=== PATIENT | female | born 1945 | race Caucasian/White ===

== ENCOUNTER 2023-09-22 02:19 | Inpatient (IN) | payer OTHER, SELFPAY ==
[2023-09-21 23:05] VITALS: BMI 33.3
[2023-09-21 23:17] VITALS: BP 180/97
[2023-09-21 23:19] VITALS: BP 180/97
[2023-09-21 23:35] LABS: % Basophils 0.3 % (0-2); % Eosinophils 0.1 % (0-6); % Immature Granulocytes 0.4 % (0-0.5); % Lymphocytes 5.4 % (20.5-51.1); % Monocytes 7.8 % (1.7-9.3); Absolute Immature Granulocytes 0.1 10^3/uL (0-0.05); Absolute Lymphocytes 0.8 10^3/uL (1.2-3.4); Absolute Monocytes 1.1 10^3/uL (0.1-0.6); Absolute Neutrophils 12.4 10^3/uL (1.4-6.5); Hematocrit 42.7 % (37.0-47.0); Hemoglobin 14.4 g/dL (12.0-16.0); Mean Corp Hgb Conc. 33.7 g/dL (33.0-37.0); Mean Corpuscular Hgb 31.2 pg (27.0-31.0); Mean Corpuscular Volume 92.6 fL (81.0-99.0); Mean Platelet Volume 10.5 fL (7.4-10.4); Nucleated Red Blood Cells % 0 %; Platelet Count 173 10^3/uL (130-400); Red Blood Cell Count 4.61 10^6/uL (4.20-5.40); Red Cell Dist. Width 12.9 % (11.5-14.5); White Blood Cell Count 14.4 10^3/uL (4.8-10.8)
[2023-09-21] MEDS: NSS 1000 IV (23:37)
--- NOTE | 2023-09-21 23:42 | ED.GENMED ---
History of Present Illness
General
Chief Complaint: Change in Mental Status
Source: patient
Exam Limitations: clinical condition
Time Seen by Provider: 09/21/23 23:25
Nursing documentation reviewed up to this point in time: agreed with
Travel History
Have you had any contact with someone who has COVID-19?: No
Do you have any symptoms of coronavirus? Fever > 100 degrees, chills, cough, shortness of breath, sore throat, loss of taste or smell, muscle aches, or headache?: No
History of Present Illness
History of Present Illness:
The patient is a 78-year-old female found down by police in her home after a well check was called. The patient is a poor historian. She does not remember how she ended up on the ground. She complains of nausea and back pain. She denies chest
pain or shortness of breath.
Past History
Past History
ED Past Medical History: Cancer, CVA, HTN, Hypercholesterolemia and Psychiatric
ED Past Surgical History: Other (Mastectomy)
PSI?: No
Social History
Tobacco: Non-smoker
Alcohol: None
Drug: None
Personal: Single
Living: alone
Employment: Retired
Family History
Family History: Unable to obtain
Review of Systems
Review of Systems
Allergies reviewed?: Yes
All Other Systems: ROS reviewed and negative except as documented in HPI and ROS
Constitutional: Reports fatigue
EENT: Reports no symptoms
Respiratory: Reports no symptoms
Cardiac: Reports no symptoms
ABD/GI: Reports nausea
: Reports no symptoms
Musculoskeletal: Reports back pain
Skin: Reports no symptoms
Neurological: Reports no symptoms
Endocrine: Reports no symptoms
Hematologic/Lymphatic: Reports no symptoms
Psychiatric: Reports no symptoms
Phy Exam
Physical Exam
Physical Exam:
Physical Exam
General: Patient appears lethargic.
Neck: supple. no meningeal signs. Dry mucous membrane
Heart: s1/s2 regular rate and rhythm, no murmur. equal radial pulses.
Lungs: no acute respiratory distress. clear bilaterally
Abdomen: normal bowel sounds. not tender. no CVAT
Neuro: alert and orientedx3. no focal neurological deficits
Skin: no rash
Psychiatric: well kept. interactive and cooperative
Extremities: no edema. no calf tenderness. negative homans. good distal pulses
Course
Orders/Labs/Results
Orders:
Orders
09/21/23 23:14
CT Head W/o Iv Contrast Urgent
Comment:
Reason For Exam: fall
Cervical Spine wo Contrast CT [CT Cervical Spine W/o Iv Contr] Urgent
Comment:
Reason For Exam: fall
09/21/23 23:24
Complete Blood Count/With Diff Urgent
09/21/23 23:25
0.9% Sodium Chloride 1000 ml [Nss] 1,000 ml IV BOLUS
09/21/23 23:27
CT Abd/pel Without Iv Or Oral Urgent
Comment:
Reason For Exam: abdominal pain, fall
Urinalysis Reflex To Culture Urgent
Date Specimen was Collected: 09/22/23
Time Specimen was Collected: 01:32
09/21/23 23:36
Keppra (Levetiracetam) [S] Urgent
Lactic Acid Urgent
09/22/23 00:34
Alcohol Urgent
Comprehensive Metabolic Panel Urgent
Creatine Phosphokinase Urgent
09/22/23 00:51
Levetiracetam Injectable [Keppra] 2,000 mg IV NOW STA
Lorazepam [Ativan] 2 mg .ROUTE .STK-MED ONE
Abnormal Lab Results
09/21/23 09/22/23 09/22/23
23:24 00:34 01:34
WBC 14.4 H 10^3/uL
(4.8-10.8)
MCH 31.2 H pg
(27.0-31.0)
MPV 10.5 H fL
(7.4-10.4)
Abs Immat Gran (auto) 0.1 H 10^3/uL
(0-0.05)
Absolute Neuts (auto) 12.4 H 10^3/uL
(1.4-6.5)
Absolute Lymphs (auto) 0.8 L 10^3/uL
(1.2-3.4)
Absolute Monos (auto) 1.1 H 10^3/uL
(0.1-0.6)
Neutrophils % 86.0 H %
(42.2-75.2)
Lymphocytes % 5.4 L %
(20.5-51.1)
BUN 23 H mg/dl
(7-17)
Glucose 128 H mg/dl
(70-99)
Alkaline Phosphatase 129 H U/L
(38-126)
Creatine Kinase 400 H U/L
(30-135)
Urine Ketones 2+ A
(Negative)
Ur Occult Blood Reflex 1+ A
(Negative)
Urine Bilirubin 1+ A
(Negative)
Leukocyte Esterase Rfl 2+ A
(Negative)
Urine Albumin (Reflex) 2+ A
(Neg - Trace)
09/21/23 23:24
09/22/23 00:34
Vital Signs
Initial and Last Documented VS:
Initial Vital Signs
BP
180/97
09/21/23 23:17
Last Documented Vital Signs
Pulse Resp BP Pulse Ox
74 19 169/78 98
09/22/23 01:30 09/22/23 01:30 09/22/23 01:05 09/22/23 01:39
MDM/Problems Addressed
Differential Diagnosis Includes:
Dehydration, rhabdo, UTI, acute alcohol intoxication, intracranial bleed
MDM/Problems Addressed:
Patient presents after being found down
Chronic conditions affecting care: HTN
Acute Exacerbation and/or Progression of Chronic Illness:
Patient is acutely hypertensive, which may be contributing to an altered mental status
Acute Exacerbation and/or Progression of Chronic Illness: HTN
*Radiology
Radiology exam reviewed: preliminary read by ED provider
*Pulse Oximetry
Patient hypoxic: no
*EKG
Interpreted by ED Provider?: Yes
Interpretation: abnormal
Comparison EKG: no changes
Rate: tachycardiac
Rhythm: sinus
[place]: normal axis
Interval: normal interval
QRS Pattern: normal QRS
Ischemia: non-specific ST changes
*Real Estate [employer] Interpretation
Rate: normal
Interpretation: normal
Rhythm: sinus
*Critical Care Note
Total Time (30-74mins, 75-104mins- exclusive of procedures): 40 min
comment:
40 minutes of critical care given to the patient including frequent reassessments of her mental status, treating her during her seizure, reviewing prior medical records, reviewing her lab work and CAT scan report
Data Reviewed
Review of Other/Old Records Reveals: Discharge Summary (Discharge summary reviewed from 05/2022 when patient was admitted for rhabdomyolysis and found to have pulmonary hypertension)
Source: patient and ambulance crew
ED Attending Note
-
Portions of this chart may have been created with voice recognition software.� Occasional wrong word or��sound alike� substitutions may have occurred due to the inherent limitations of voice recognition software.
Discharge Plan
Departure
Patient Disposition: Admit
Date of Disposition: 09/22/23
Time of Disposition: 01:08
Admit to: Telemetry
Presentation/result/management discussed w/ accepting MD/DO: Hospitalist
Patient with high blood pressure during this ER visit?: Yes
Discharge Problem:
Rhabdomyolysis, Breakthrough seizure
Prescriptions:
No Action
levetiracetam 500 MG tablet
500 mg PO DAILY
Patient Comments:
09/21/2023: Pt doesn't always take BID, but mostly takes in the am
aspirin 81 mg Tablet,Delayed Release (Dr/Ec)
81 mg PO DAILY
Patient Comments:
per pt 'not for a few days'
nifedipine 30 mg Tablet Extended Release
30 mg PO DAILY 30 Days Qty: 30 0RF
Patient Comments:
09/21/2023: Pt unsure of name says its a 'really long name' medications on both Dr First and [facility]
Referrals:
UNKNOWN - PT DOES,NOT KNOW [Family Provider] -
Interventions
Interventions:
*Risk Screen - Suicide Last Done: 09/21/23 23:19
*General Assessment Last Done: 09/21/23 23:19
*Neglect/Abuse Screening Last Done: 09/21/23 23:19
ED- Fall Risk Assessment Last Done: 09/22/23 00:23
*ED COVID-19 Vaccine History Last Done: 09/21/23 23:19
ED- Neurological Assessment Last Done: 09/22/23 00:20
ED Swallowing Screen Last Done: 09/22/23 01:01
[2023-09-22] VITALS (14 sets, daily range): BP systolic 116–179; BP diastolic 64–93; PULSE 72–124; O2SAT 96; BMI 32.3; BMI 32.2
[2023-09-22 00:11] LABS: Lactic Acid 1.5 mmol/L (0.7-2.0)
[2023-09-22] MEDS: KEPPRA 2000 MG IV (00:57)
[2023-09-22 01:02] LABS: ALT (SGPT) 20 U/L (0-35); AST (SGOT) 31 U/L (14-36); Albumin 4.4 g/dl (3.5-5.0); Alkaline Phosphatase 129 U/L (38-126); Blood Urea Nitrogen 23 mg/dl (7-17); Calcium 9.4 mg/dl (8.4-10.2); Carbon Dioxide 24 mmol/L (22-30); Chloride 103 mmol/L (98-107); Creatine Phosphokinase 400 U/L (30-135); Estimated Creatinine Clearance 75 ml/min; Glucose 128 mg/dl (70-99); Potassium 3.9 mmol/L (3.5-5.1); Sodium 135 mmol/L (135-145); Total Bilirubin 1.1 mg/dl (0.2-1.3); Total Protein 7.6 g/dl (6.3-8.2); eGFR > 60.00
[2023-09-22 01:05] LABS: Alcohol None Detected
[2023-09-22 01:40] LABS: Urine Albumin 2+ (Neg - Trace); Urine Bilirubin 1+ (Negative); Urine Character Slightly Cloudy (Clear); Urine Color Amber; Urine Glucose Negative (Negative); Urine Ketone 2+ (Negative); Urine Leukocyte 2+ (Negative); Urine Nitrite Negative (Negative); Urine Occult Blood 1+ (Negative); Urine Specific Gravity 1.025 (<1.030); Urine Urobilinogen Negative (Neg - 1+)
[2023-09-22 02:08] LABS: Urine Amorphous Seen; Urine Squamous Cell >30 /LPF (Few); Urine Urothelial Cell >30 /LPF (FEW)
--- NOTE | 2023-09-22 02:13 | HPS.HSE ---
Family Physician
-
Family Physician: NOT KNOW UNKNOWN - PT DOES
Chief Complaint
-
Found Down
History of Present Illness
Patient is a 78y F with PMH significant for seizure disorder, hypertension and mood disorder who presents to ED after being 'found down' at home by emergency services during a well check. Patient was brought to the ED for evaluation. Here she
complained of low back discomfort; though, she cannot say whether or not she fell or injured herself in any way. Patient had witnessed seizure activity here in the ED. She was treated with IV Ativan and then loaded with IV Keppra.
At the time of my examination, patient is awake and alert. She moves all extremities and answers questions - though she cannot recall how she ended up on the floor at home, how long she was there, etc.
She states that she had only one seizure previously and it was 'ages ago'.
Medical History
Past Medical History
Past Medical History: Reports Other
Additional Past Medical History:
Seizure Disorder
Mood Disorder +/- Psychosis
Hypertension
Breast Cancer
ASCVD / CVA
Past Surgical History: Reports Other
Additional Past Surgical History:
Lumpectomy x 3
D&C
Social History
Tobacco: Former Smoker
Alcohol: Occasional
Drug: None
Living: Alone
Family History
Family History: Not pertinent
Allergies / Home Medications
Allergies reflects when Allergies were last updated in [facility].
Home Medications with original date entered in [facility]
Allergy/Medication List:
Allergies
Allergy/AdvReac Type Severity Reaction Status Date / Time
lactose Allergy Unknown Unknown Verified 09/21/23 23:19
Home Medications
levetiracetam 500 mg tablet 500 mg PO DAILY Neurological Condition 05/13/21
aspirin 81 mg tablet,delayed release 81 mg PO DAILY Blood clot prevention/tx 05/26/22
nifedipine 30 mg tablet,extended release 30 mg PO DAILY 30 days #30 tabs 06/02/22
Review of Systems
-
History Source: Patient
A 12 point ROS was completed and negative except as noted: Yes
Constitutional: Denies Fever or Chills
Respiratory: Denies Cough or Trouble Breathing
Cardiac: Denies Chest Pain or Palpitations
Abdomen/GI: Denies Abdominal Pain, Nausea, Vomiting, Diarrhea or Anorexia
: Denies Dysuria or Frequency
Musculoskeletal: Reports Other (Back pain); Denies Edema
Neurological: Denies Dizzy, Headache, Weakness or Numbness
Psych: Denies Anxiety or Suicidal
Physical Exam
Vital Signs
Vital Signs
Pulse Resp BP Pulse Ox
74 19 169/78 98
09/22/23 01:30 09/22/23 01:30 09/22/23 01:05 09/22/23 01:39
Physical Exam
General: Other (78y F in no acute distress.)
HEENT: Moist mucous membranes and PERRLA
Respiratory: Clear; No Wheezes, Rales or Rhonchi
Cardiac: S1/S2 and Regular Rhythm; No Murmur
GI: Soft, Non Tender, Non Distended and Normal Bowel Sounds
Musculoskeletal: No Clubbing, No Cyanosis and No Edema
Neuro: Awake, Alert and Nonfocal/grossly intact
Laboratory Results
-
09/21/23 23:24
09/22/23 00:34
Laboratory Results
Lactic Acid 1.5 mmol/L (0.7-2.0) 09/21/23 23:36
Total Bilirubin 1.1 mg/dl (0.2-1.3) 09/22/23 00:34
AST 31 U/L (14-36) 09/22/23 00:34
ALT 20 U/L (0-35) 09/22/23 00:34
Alkaline Phosphatase 129 U/L (38-126) H 09/22/23 00:34
Impression/Plan
-
A/P: Patient is a 78y F with PMH significant for seizure disorder and mental health issues who presents to ED for evaluation after being 'found down' during welfare check.
Found Down
Rhabdomyolysis
- Admit for further evaluation and treatment.
- Unclear how patient ended up on the ground and she can provide no details.
- Monitor on telemetry to rule out arrhythmia.
- ? seizure - especially given witnessed seizure in the ED today.
- ? fall / injury / etc.
- CPK mildly elevated at present.
- Renal function normal / at baseline.
- IVFs support.
- PT / OT evaluations.
Seizure Disorder
- Witnessed seizure episode in the ED.
- Not clear if seizure caused her initial collapse, or if today's event is secondary to lack of meds due to prior syncope, fall, etc.
- Keppra load in the ED - continue 1000mg BID for now.
- Level is pending.
- Ativan as needed for breakthrough seizures.
- Neurology evaluation.
Mood Disorder
- History of suspected psychosis, psychiatric hospitalizations, etc.
- Patient denies any suicidal / homicidal ideations at this time.
- No apparent active psychotropic medications.
- Follow for changes in mood. Consider formal Psych evaluation.
Benign Hypertension
- Stable. Continue nifedipine with holding parameters.
- Adjust regimen as needed.
Prior CVA
- Stable. CT scan shows no new findings today. Old area of encephalomalacia.
- Continue daily ASA.
- Follow for any new / focal neurologic complaints.
DVT Prophylaxis: SCDs
Code Status: Full
[2023-09-22 02:15] LABS: Urine Bacteria Many (Negative); Urine Calcium Oxalate Crystals Seen; Urine White Cell >100 /HPF (0-5)
[2023-09-22 02:16] LABS: Urine Mucus Moderate
[2023-09-22] MEDS: LR 1000 IV ×4 (04:45→23:53)
[2023-09-22 05:22] LABS: Hematocrit 39.7 % (37.0-47.0); Hemoglobin 13.3 g/dL (12.0-16.0); Mean Corp Hgb Conc. 33.5 g/dL (33.0-37.0); Mean Corpuscular Hgb 31.4 pg (27.0-31.0); Mean Corpuscular Volume 93.6 fL (81.0-99.0); Mean Platelet Volume 11.2 fL (7.4-10.4); Platelet Count 151 10^3/uL (130-400); Red Blood Cell Count 4.24 10^6/uL (4.20-5.40); Red Cell Dist. Width 12.9 % (11.5-14.5); White Blood Cell Count 12.5 10^3/uL (4.8-10.8)
[2023-09-22 05:57] LABS: ALT (SGPT) 18 U/L (0-35); AST (SGOT) 27 U/L (14-36); Albumin 3.7 g/dl (3.5-5.0); Alkaline Phosphatase 108 U/L (38-126); Blood Urea Nitrogen 24 mg/dl (7-17); Calcium 9.2 mg/dl (8.4-10.2); Carbon Dioxide 23 mmol/L (22-30); Chloride 103 mmol/L (98-107); Direct Bilirubin 0.5 mg/dl (0.0-0.4); Estimated Creatinine Clearance 76 ml/min; Glucose 112 mg/dl (70-99); Phosphorus 3.5 mg/dl (2.5-4.5); Potassium 3.7 mmol/L (3.5-5.1); Sodium 138 mmol/L (135-145); Total Protein 6.4 g/dl (6.3-8.2); eGFR > 60.00
[2023-09-22 06:06] LABS: Creatine Phosphokinase 424 U/L (30-135)
[2023-09-22 06:18] LABS: TSH Reflex To Free T4 1.26 uIU/ml (0.47-4.68)
[2023-09-22] MEDS: KEPPRA 1000 MG IV ×2 (08:41→20:08)
[2023-09-22] MEDS: ASPIR LOW (ENTERIC COATED) 81 MG PO (08:41)
[2023-09-22] MEDS: PROCARDIA XL (EXTENDED RELEASE) 30 MG PO (08:41)
--- NOTE | 2023-09-22 08:48 | PTCARENOTE ---
pt able to take morning meds whole with water. pt very poor historian and states 'it has been a long while' since her last seizure. per security shift supervisor report this pt had a seizure down in the ED prior to acute care floor admission. pt answers
assessment questions properly. pt states no sob but has some back pain and 'midsection' pain with ambulation. seizure pads are intact in the bed, purewick is in place and pt is receiving LR at 150ml/hr.
--- NOTE | 2023-09-22 09:13 | CON.NEURO4 ---
Addendum entered and electronically signed by Rehan Lunsford MD 09/22/23 16:27:
Studies reviewed.
I have personally examined the patient. I reviewed and agree with the [facility]'s Note.
My addenda:
Awake, alert, interactive. No acute distress.
Speech intact.
Follows 2-step requests w/o difficulty. No tremor.
Extra-ocular movements grossly intact.
Facial movements full and symmetric. Hearing intact to normal conversational volume.
Normal UE movements bilaterally.
Neck: full ROM.
Chest: no dyspnea
Heart: no JVD
Ext: (-) Clubbing, (-) Cyanosis, (-) Edema
IMPRESSIONS/RECOMMENDATIONS:
Abrupt onset of change in mental status
Most likely due to recurrent seizure
continue Levetiracetam 1000 mg Q12
continue ASA
Will continue to follow as needed.
Original Note:
Documented by User: Jelena Bingham NP 09/22/23 11:34
Consultation - Neurology 4
-
CONSULTING PHYSICIAN: Rehan Lunsford MD
REFERRING PHYSICIAN: Hospitalists/Dr. Barakat
DICTATED BY: MARCI Correa
DATE/TIME OF REQUEST: 09/22/23
DATE/TIME OF CONSULTATION: 09/22/23
Reason for Consultation: Concern for seizure
History of Present Illness:
This is a 78-year-old female who has presented to the hospital with report of being found on the ground in her apartment by EMS during a wellness check. Patient cannot recall how she fell or how long she was on the ground. She reports that when she
woke up, she was wedged between furniture and that is what prevented her from getting up off of the ground. Her biggest complaint is lower back discomfort. CT Head and cervical spine were obtained and are negative for any acute abnormalities. She
had a witnessed seizure in the ER, and received 2mg lorazepam and 2000mg levetiracetam. It is unclear if there was any incontinence with this event, she denies any tongue discomfort. She was followed by Neurology Dr. Jennings in the past but she has not
seen him in years. She has been on levetiracetam 500mg daily for years, and many medical record notes report that she stops taking it at times due to thinking it will kill her. Currently, patient denies any headache, dizziness, speech/swallow
difficulty, nausea, numbness, chest pain, palpitations, and shortness of breath.
Past Medical History: Left temporal/occipital ischemic stroke 06/2013, seizure disorder, HTN, HLD, breast cancer, paranoid/delusional psych disorder
Surgical History: Mastectomy, D&C
Family History: Reviewed and noncontributory.
Social History: Former smoker. Denies alcohol, and illicit drug use. Does not drive due to left homonymous hemianopia. 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
Allergies: Lactose.
Home Medications: See below.
Review of Symptoms:
Patient denies any fever, headache, chest pain, shortness of breath, GI or symptoms.
�Per the HPI.�All systems are reviewed negative except above.
Physical Exam:
The patient is afebrile, abdomen is nondistended, breathing is unlabored on oxygen via nasal cannula, skin is warm and dry, no edema.
Neurologic Examination:
The patient is awake, alert and oriented x 3, poor historian. Next holiday- , most recent holiday- . She is able to follow commands and answer questions appropriately. There is no aphasia or dysarthria. On cranial nerve
assessment, pupils are 3 mm bilateral, round and reactive to light and accommodation. There is a right homonymous hemianopia. Extraocular movements are intact. Facial sensations are intact and bilaterally symmetrical, there is no facial asymmetry.
Hearing is intact bilaterally to normal conversation volume. Tongue palate and uvula are midline. No tongue laceration. Sternocleidomastoid strengths are full bilaterally. Motor strengths are 5/5 bilateral upper and lower extremities on medical
research Sawyer scale. There is no drift or involuntary movement noted. Deep tendon reflexes are 2+ bilateral upper and lower extremities and Babinski is absent bilaterally. Coordination is intact by finger to nose bilaterally.
Lab Results: See below.
Neuro Imaging:
1. CT Head 09/21/23: No acute intracranial abnormalities. Old left occipital lobe infarct. Findings again seen compatible with diffuse cortical atrophy with nonspecific white matter changes as described above.
2. CT Cervical Spine 09/21/23: Straightening of the normal cervical lordotic curvature. Degenerative changes. No findings to suggest recent fracture.
Differentials for the patient's presentation include:
1. Seizure disorder with breakthrough generalized seizure, well-controlled, without status epilepticus.
2. History of medication noncompliance
3. Rhabdomyolysis
4. Old left temporal/occipital ischemic stroke with chronic right homonymous hemianopia
Patient has the following risk factors for their symptoms: Old stroke, seizure disorder medication noncompliance
Recommendations:
-Routine EEG ordered/pending
-Check orthostatic vital signs
-Continue increased dose of levetiracetam 1000mg BID
-Seizure precautions
-DVT prophylaxis
-Will follow pending EEG results. Patient should follow-up with Neurology Dr. Jennings as an outpatient.
Discussed patient care with: Dr. Lunsford, the patient
Vital Signs and Labs
-
Vital Signs and Labs:
Vital Signs
Temp Pulse Resp BP Pulse Ox
97.7 F 81 16 144/79 95
09/22/23 11:09 09/22/23 11:09 09/22/23 11:09 09/22/23 11:09 09/22/23 11:09
Lab Results
09/22/23 04:40
09/22/23 04:40
Sodium 138 mmol/L (135-145) 09/22/23 04:40
Potassium 3.7 mmol/L (3.5-5.1) 09/22/23 04:40
BUN 24 mg/dl (7-17) H 09/22/23 04:40
Glucose 112 mg/dl (70-99) H 09/22/23 04:40
Calcium 9.2 mg/dl (8.4-10.2) 09/22/23 04:40
Phosphorus 3.5 mg/dl (2.5-4.5) 09/22/23 04:40
Medications
-
Active Medications
Generic Name Dose Route Start Last Admin
Trade Name Freq PRN Reason Stop Dose Admin
Acetaminophen 650 mg 09/22/23 04:11
Acetaminophen 325 Mg Tablet PO 10/20/23 04:10
Q4HPRN PRN
Mild Pain / Temp > 101
Aspirin 81 mg 09/22/23 08:00 09/22/23 08:41
Aspirin 81 Mg (Enteric Coated) Tablet PO 10/20/23 07:59 81 mg
DAILY NIKA Administration
Enoxaparin Sodium 40 mg 09/22/23 18:00
Enoxaparin Sodium 40 Mg/0.4 Ml Syringe SC 10/20/23 17:59
QPM NIKA
Lactated Ringer's 1,000 mls @ 150 mls/hr 09/22/23 04:11 09/22/23 11:06
Lr IV 1,000 mls
.Q6H40M NIKA Administration
Levetiracetam 1,000 mg 09/22/23 08:00 09/22/23 08:41
Levetiracetam (100 Mg/Ml) 500 Mg/5 Ml Vial IV 10/20/23 07:59 1,000 mg
Q12 NIKA Administration
Lorazepam 2 mg 09/22/23 04:11
Lorazepam 2 Mg/Ml Vial IV 10/20/23 04:10
Q4HPRN PRN
Seizure activity
Nifedipine 30 mg 09/22/23 08:00 09/22/23 08:41
Nifedipine 30 Mg Extended Release Tablet PO 10/20/23 07:59 30 mg
DAILY NIKA Administration
Ondansetron HCl 4 mg 09/22/23 04:11
Ondansetron 4 Mg/2 Ml Vial IV 10/20/23 04:10
Q6HPRN PRN
nausea and vomiting
Sodium Chloride 0 flush 09/22/23 05:00
Sodium Chloride 0.9% (Flush) Syringe IV 10/20/23 04:59
PER PROTOCOL NIKA
Sodium Chloride 1 ml 09/22/23 04:31
Nss (Pf) 10 Ml Vial For Ativan 2 Mg Dose IV 10/20/23 04:30
Q4HPRN PRN
IV LORAZEPAM DILUTION
Home Medications
Medication Instructions Recorded
levetiracetam 500 mg tablet 500 mg PO DAILY Neurological 05/13/21
Condition
aspirin 81 mg tablet,delayed 81 mg PO DAILY Blood clot 05/26/22
release prevention/tx
nifedipine 30 mg tablet,extended 30 mg PO DAILY 30 days #30 tabs 06/02/22
release

Documented by User: Rehan Lunsford MD 09/22/23 16:18
Consultation - Neurology 4
-
CONSULTING PHYSICIAN: Rehan Lunsford MD
REFERRING PHYSICIAN: Hospitalists/Dr. Barakat
DICTATED BY: MARCI Correa
DATE/TIME OF REQUEST: 09/22/23
DATE/TIME OF CONSULTATION: 09/22/23
Reason for Consultation: Concern for seizure
History of Present Illness:
This is a 78-year-old female who has presented to the hospital with report of being found on the ground in her apartment by EMS during a wellness check. Patient cannot recall how she fell or how long she was on the ground. She reports that when she
woke up, she was wedged between furniture and that is what prevented her from getting up off of the ground. Her biggest complaint is lower back discomfort. CT Head and cervical spine were obtained and are negative for any acute abnormalities. She
had a witnessed seizure in the ER, and received 2mg lorazepam and 2000mg levetiracetam. It is unclear if there was any incontinence with this event, she denies any tongue discomfort. She was followed by Neurology Dr. Jennings in the past but she has not
seen him in years. She has been on levetiracetam 500mg daily for years, and many medical record notes report that she stops taking it at times due to thinking it will kill her. Currently, patient denies any headache, dizziness, speech/swallow
difficulty, nausea, numbness, chest pain, palpitations, and shortness of breath.
Past Medical History: Left temporal/occipital ischemic stroke 06/2013, seizure disorder, HTN, HLD, breast cancer, paranoid/delusional psych disorder
Surgical History: Mastectomy, D&C
Family History: Reviewed and noncontributory.
Social History: Former smoker. Denies alcohol, and illicit drug use. Does not drive due to left homonymous hemianopia. 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
Allergies: Lactose.
Home Medications: See below.
Review of Symptoms:
Patient denies any fever, headache, chest pain, shortness of breath, GI or symptoms.
�Per the HPI.�All systems are reviewed negative except above.
Physical Exam:
The patient is afebrile, abdomen is nondistended, breathing is unlabored on oxygen via nasal cannula, skin is warm and dry, no edema.
Neurologic Examination:
The patient is awake, alert and oriented x 3, poor historian. Next holiday- , most recent holiday- . She is able to follow commands and answer questions appropriately. There is no aphasia or dysarthria. On cranial nerve
assessment, pupils are 3 mm bilateral, round and reactive to light and accommodation. There is a right homonymous hemianopia. Extraocular movements are intact. Facial sensations are intact and bilaterally symmetrical, there is no facial asymmetry.
Hearing is intact bilaterally to normal conversation volume. Tongue palate and uvula are midline. No tongue laceration. Sternocleidomastoid strengths are full bilaterally. Motor strengths are 5/5 bilateral upper and lower extremities on medical
research Sawyer scale. There is no drift or involuntary movement noted. Deep tendon reflexes are 2+ bilateral upper and lower extremities and Babinski is absent bilaterally. Coordination is intact by finger to nose bilaterally.
Lab Results: See below.
Neuro Imaging:
1. CT Head 09/21/23: No acute intracranial abnormalities. Old left occipital lobe infarct. Findings again seen compatible with diffuse cortical atrophy with nonspecific white matter changes as described above.
2. CT Cervical Spine 09/21/23: Straightening of the normal cervical lordotic curvature. Degenerative changes. No findings to suggest recent fracture.
Differentials for the patient's presentation include:
1. Seizure disorder with breakthrough generalized seizure, well-controlled, without status epilepticus.
2. History of medication noncompliance
3. Rhabdomyolysis
4. Old left temporal/occipital ischemic stroke with chronic right homonymous hemianopia
Patient has the following risk factors for their symptoms: Old stroke, seizure disorder medication noncompliance
Recommendations:
-Routine EEG ordered/pending
-Check orthostatic vital signs
-Continue increased dose of levetiracetam 1000mg BID
-Seizure precautions
-DVT prophylaxis
-Will follow pending EEG results. Patient should follow-up with Neurology Dr. Jennings as an outpatient.
Discussed patient care with: Dr. Lunsford, the patient
--- NOTE | 2023-09-22 11:06 | W.PN.HOSP.TC ---
Today's Communication/Plan
-
see A/P
Assessment / Plan
Assessment / Plan
78y F with PMH significant for seizure disorder, hypertension and mood disorder who presented to ED after being 'found down' at home by emergency services during a well check.�Patient was brought to the ED for evaluation.�
Here she complained of low back discomfort; though, she cannot say whether or not she fell or injured herself in any way.�Patient had witnessed seizure activity in the ED.� She was treated with IV Ativan and then loaded with IV Keppra.
At the time of admission, patient was awake and alert.� She moves all extremities and answers questions - though she cannot recall how she ended up on the floor at home, how long she was there, etc.
She states that she had only one seizure previously and it was 'ages ago'.
A/P:
# Found Down
# Non-traumatic Rhabdomyolysis
# neck pain and lower back pain with ambulation
Unclear how patient ended up on the ground and she could not provide details.
Telemetry so far without arrhythmia.
? seizure - especially given witnessed seizure in the ED
? fall / injury / etc.
CT head unrevealing, CT neck without fracture, CT AP without gross acute posttraumatic abnormality throughout the abdomen and pelvis.
CPK mildly elevated, continue to monitor. Cont IVFs support. Renal function normal / at baseline.
PT / OT evaluations.
# Seizure Disorder
Witnessed seizure episode in the ED.
Not clear if seizure caused her initial collapse, or if event was secondary to lack of meds due to prior syncope, fall, etc.
Keppra load in the ED - continue 1000mg BID for now.
Keppra Level is pending.
Ativan as needed for breakthrough seizures.
Neurology evaluation.
# Mild leucocytosis likely reactive
Cont to monitor
# Mood Disorder
# History of suspected psychosis, psychiatric hospitalizations, etc.
Patient denies any suicidal / homicidal ideations at this time.
No apparent active psychotropic medications.
Follow for changes in mood.� Consider formal Psych evaluation.
Poor insight
# Benign Hypertension�- Stable.�
Continue nifedipine with holding parameters.
Adjust regimen as needed.
# Prior CVA - Stable.�
CT scan shows no new findings.� Old area of encephalomalacia.
Continue daily ASA.
Follow for any new / focal neurologic complaints.
DVT Prophylaxis:�Lovenox SQ
Code Status:� Full
DW RN
DW brother at bedside
Anticipated Discharge: 24 - 48 hours
Subjective/Interval History
-
Date of Service: September 22, 2023
Objective Data
-
Labs:
Laboratory Results
09/21/23 09/22/23 09/22/23
23:24 00:06 00:34
WBC 14.4 H
Hgb 14.4
Hct 42.7
Plt Count 173
Sodium Cancelled Cancelled 135
Potassium Cancelled Cancelled 3.9
Chloride Cancelled Cancelled 103
Carbon Dioxide Cancelled Cancelled 24
BUN Cancelled Cancelled 23 H
Creatinine Cancelled Cancelled 0.7
Glucose Cancelled Cancelled 128 H
Calcium Cancelled Cancelled 9.4
Total Bilirubin Cancelled Cancelled 1.1
AST Cancelled Cancelled 31
ALT Cancelled Cancelled 20
Alkaline Phosphatase Cancelled Cancelled 129 H
09/22/23
04:40
WBC 12.5 H
Hgb 13.3
Hct 39.7
Plt Count 151
Sodium 138
Potassium 3.7
Chloride 103
Carbon Dioxide 23
BUN 24 H
Creatinine 0.7
Glucose 112 H
Calcium 9.2
Total Bilirubin 1.0
AST 27
ALT 18
Alkaline Phosphatase 108
Vital Signs:
Vital Signs
Temp Pulse Resp BP Pulse Ox
36.7 C 72 16 156/85 96
09/22/23 07:50 09/22/23 07:50 09/22/23 07:50 09/22/23 08:41 09/22/23 10:25
Review of Systems
-
Musculoskeletal: Reports Other (neck pain and lower back pain with movement)
Physical Exam
-
General: Well Developed, Well Nourished, No Apparent Distress, Comfortable and Conversant
HEENT: Normocephalic, Nose Appears Normal and Ears Appear Normal
Respiratory: Clear to Auscultation and Non Labored Respirations; Negative Wheezes or Accessory Resp Muscle Use
Cardiac: Regular Rhythm and S1/S2
GI: Soft, Nontender and Nondistended
Skin: Warm and Dry; Negative Rash
Psych: Calm; Negative Intact Judgement/Insight
Data Reviewed
-
CT Scan: Report Reviewed by me
Labs: Labs Reviewed by me
--- NOTE | 2023-09-22 12:45 | PTOTSP ---
Dysphagia Evaluation
Patient has acute risk factors for dysphagia (i.e., cognitive changes including decreased memory and decreased insight into deficits) as well as chronic risk factors (i.e., psychiatric disorder, hiatal hernia.) At time of this evaluation, patient
with signs concerning for possible WFL-mild/pharyngeal dysphagia with reduced oral clearance with solids (improved with a liquid wash) and a single delayed cough after consecutive drinking of liquids (which may have been a delayed aspiration
response, bottom up aspiration, and/or unrelated coughing). Patient denied history of dysphagia and without signs of aspiration complications (i.e., no PNA) at this time.
Recommend:
1. Regular, Thin Liquids
2. Medications as best tolerated
3. Supervision given AMS
4. Strategies: small sips/bites, alternate solids and liquids to assist with oral clearance, ensure oral cavity clears, remain upright after eating for 30 minutes as a reflux precaution
5. Will follow up briefly at the acute care level as able/appropriate. Patient may benefit from a cognitive linguistic evaluation given concern for memory deficits.
--- NOTE | 2023-09-22 13:32 | PTCARENOTE ---
at 1300 2135, brother told me that she probably would not like us knowing this but shes been in and out of mental institutions the last 3-4 years. saw some crisis reports in her history as well. pt also was talking to the brother and i overheard
from the lozano that she is 'hearing the voices again'. at 1330 this nurse, Luisa from PT and flooring machine operator witnessed patient having a full conversation with 'someone' in the room. when this nurse asked pt said she was talking to someone through the
monitor that was updating her on her care. pt also stated she did not know how much more she could tell me about it and that she said too much. states the voices talking to her are super friendly and just asking about her care. pt is noncompliant
with her 500mg levetriacetam per her medication summary. no doses given during this patients stay as of yet.
--- NOTE | 2023-09-22 15:03 | W.PN.UPDATE ---
Update Note
Progress Note Update
attempted to see patient but ecg had been started. reviewed chart. spoke w nursing who reports patient not agitated although seemingly impulsive. she does have a prn of ativan 2 mg presumably for seizure activity. will leave a smaller prn for
agitation. o.5 mg. she has a known hx of delusional d.o as per my psych evaluation of 2021. at that time i spoke to her brother who reported she was not consistent w sz meds. will see her later today or tomorrow.
--- NOTE | 2023-09-22 16:51 | EEG.RPT ---
Electroencephalogram Report
Recording
Date of EE09/22/23
Type of EEG: Routine
Length of EEG recordin mins
Done with Video Recording: Yes
Patient Status: Inpatient
Recording Conditions: Awake
Hyperventilation Performed: No
Photic Stimulation Performed: Yes
Report
METHODS
A 21 channel digitized electroencephalogram was performed at [facility]. The 10/20 international system of electrode placement was used. In addition to EEG, the patient was monitored for EKG. The duration of the recording was 62 minutes.
BACKGROUND
The background consisted of diffuse excess beta activity with no clear posterior dominant rhythm.
PHOTIC STIMULATION
Photic stimulation using a step-pritchett increase in photic frequency varying from 1-31 Hertz resulted in no driving responses but no appearance of abnormal activity.
ABNORMAL EEG ACTIVITY
This EEG is abnormal due to the presence of diffuse excess beta activity with no clear posterior dominant rhythm.
CLINICAL EVENTS
Clinical events consisting of visual hallucinations had no clear epileptiform correlate.
INTERPRETATION AND CLINICAL CORRELATION
This EEG is abnormal due to the presence of diffuse excess beta activity with no clear posterior dominant rhythm. Clinical events consisting of visual hallucinations had no clear epileptiform correlate. Diffuse excess beta can be seen due to drug
effect or anxiety.
[2023-09-22] MEDS: NSS (PRESERVATIVE FREE) 1 ML IV (17:43)
[2023-09-22] MEDS: ATIVAN 2 MG IV (17:44)
[2023-09-22] MEDS: LOVENOX SC (17:48)
--- NOTE | 2023-09-22 18:06 | PTCARENOTE ---
pt very agitated at bedside, loud verbalization arguing with 'someone in the room' pt reading tachycardic during argument with auditory hallucinations. pt accused staff of belittling her. made aware. pt yelling at 'monitor controlled witnesses'
in the room about horseback lessons.
[2023-09-23] VITALS (7 sets, daily range): BP systolic 112–190; BP diastolic 50–98; PULSE 84–105; O2SAT 97
[2023-09-23 05:24] LABS: Hematocrit 38.8 % (37.0-47.0); Hemoglobin 12.9 g/dL (12.0-16.0); Mean Corp Hgb Conc. 33.2 g/dL (33.0-37.0); Mean Corpuscular Hgb 30.7 pg (27.0-31.0); Mean Corpuscular Volume 92.4 fL (81.0-99.0); Mean Platelet Volume 10.9 fL (7.4-10.4); Platelet Count 144 10^3/uL (130-400); Red Cell Dist. Width 13.1 % (11.5-14.5); White Blood Cell Count 8.1 10^3/uL (4.8-10.8)
[2023-09-23 05:47] LABS: Blood Urea Nitrogen 18 mg/dl (7-17); Carbon Dioxide 25 mmol/L (22-30); Chloride 107 mmol/L (98-107); Creatine Phosphokinase 1089 U/L (30-135); Estimated Creatinine Clearance 89 ml/min; Glucose 95 mg/dl (70-99); Magnesium 1.9 mg/dl (1.6-2.3); Potassium 3.4 mmol/L (3.5-5.1); Sodium 138 mmol/L (135-145); eGFR > 60.00
[2023-09-23] MEDS: LR 1000 IV ×3 (07:07→22:51)
[2023-09-23] MEDS: ASPIR LOW (ENTERIC COATED) 81 MG PO (09:06)
[2023-09-23] MEDS: KCL 40 MEQ PO (09:06)
[2023-09-23] MEDS: KEPPRA 1000 MG IV ×2 (09:07→20:49)
[2023-09-23] MEDS: DESENEX/MITRAZOL/ZEASORB 1 APPLIC TOPICAL ×2 (09:07→20:49)
[2023-09-23] MEDS: PROCARDIA XL (EXTENDED RELEASE) 30 MG PO (09:07)
--- NOTE | 2023-09-23 10:23 | CON.MD ---
Addendum entered and electronically signed by Serafin Ann MD 09/23/23 11:19:
note cpk rising. tsh normal would check b12 folate and vit d given mental status.
Original Note:
Consultation - Medical
-
patient seen chart reviewed. discussed w nursing. this patient is known to me having been seen in may of 2022 .the patient is a 78 year old woman brought to er after being 'found down'. 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
she is a notably very poor historian. while she answered a few questions seemingly appropriately she would often launch into statements which had little to do with the question. when asked if she had ever she said 'i worked where i
worked.' when aslked if she had ever been in a psychiatric hospital she said 'i took a class once...i met a man i went out with a few times...we never had sex or anything.' she does admit she hears voices and has heard voices it seems for years.
julius tillman and his mother speak to her. the voices do not tell her to harm herself or others and are at this point pleasant. she takes no psychotropic medications according to info obtained in this chart. on the subject of medications she told
me her medications are mixed up 'the old with the new'. it is suspected that she does not take her seizure medications correctly and that a sz was responsible for the fall and subsequent admission. ?could her confusion be postictal?? i had seen
mrs pisano in the past (may of 2022) and she seems more confused than she was at that time however it is over a year ago. the patient denies that she is depressed. she has no suicidal thoughts. she has a good appetite judging by the tray in
front of her. her energy level does not seem particularly diminished at this moment.
past psych hx from last assessment and obtained from brother patient has been hospitalized psychiatrically in the past approximately three or four times. brother could not recall last hospitalization he said 'maybe within the last year' which
would have been [address] scan head with no acute findings but sig atrophy
medical hx patient noted on last admit to have qtc of 539. she is here after a fall thought secondary to a sz..eeg is abnormal given diffuse beta activity. she has hx breast ca. she has hx cva htn hld ua suspicious for infection culture
pending re labs K is slightly low otherwise anemia present last go around is resolved
fh denied
substance abuse denied
sh never m. no friends. pulley maintainer mc omes into the home twice weekly she told me to take her to lunch and shop. 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
mse pleasant woman appears in nad. speech rambling and tangential. sometimes answer was appropriate but often answer was not related to the question see above. thought process disorganized admits to auditory hallucinations which are pleasant no
suicidal thoughts. mood is cheerful affect generally c/w emotional trend. cognitively impaired oriented to place year told me august which was close but when i suggested august was over she could not tell me it was september
dx unspecifed psychosis r/o tme secondary to medical reason of which there are several possibilitiess (uti....post ictal...etc) r.o dementia
recommendations at this point would recheck ecg given high qtc last time. await urine culture results. needs workup re dementia but given post ictal state and ?uti would not do any testing at this time. she is very pleasant and cooperative. do
not feel we need to medicate at this time. the question should be asked can she continue to live alone , in any case someone should be handling her meds and administering them. family may need to make some provisions for supervision if she is to
remain in the home. will check in on her tomorrow.
--- NOTE | 2023-09-23 11:12 | W.PN.HOSP.TC ---
Today's Communication/Plan
-
see AP
Assessment / Plan
Assessment / Plan
78y F with PMH significant for seizure disorder, hypertension and mood disorder who presented to ED after being 'found down' at home by emergency services during a well check.�Patient was brought to the ED for evaluation.�
Here she complained of low back discomfort; though, she cannot say whether or not she fell or injured herself in any way.�Patient had witnessed seizure activity in the ED.� She was treated with IV Ativan and then loaded with IV Keppra.
At the time of admission, patient was awake and alert.� She moves all extremities and answers questions - though she cannot recall how she ended up on the floor at home, how long she was there, etc.
She states that she had only one seizure previously and it was 'ages ago'.
A/P:
# Found Down
# Non-traumatic Rhabdomyolysis
# neck pain and lower back pain with ambulation
Unclear how patient ended up on the ground and she could not provide details.
Telemetry so far without arrhythmia.
? seizure - especially given witnessed seizure in the ED
CT head unrevealing, CT neck without fracture, CT AP without gross acute posttraumatic abnormality throughout the abdomen and pelvis.
Follow CPK level (rising)
Cont IVFs support. Renal function normal / at baseline.
PT / OT recc SNF
# Seizure Disorder
Witnessed seizure episode in the ED.
Not clear if seizure caused her initial collapse, or if event was secondary to lack of meds due to prior syncope, fall, etc.
s/p Keppra load in the ED - continue 1000mg BID for now. Keppra Level is pending.
Cont Ativan as needed for breakthrough seizures.
alcohol level neg on admission
s/p EEG
Neurology on board
# Mild leucocytosis likely reactive , resolved
# Mood Disorder
# History of suspected psychosis, psychiatric hospitalizations, etc.
Patient denies any suicidal / homicidal ideations at this time. Poor insight.
No apparent active psychotropic medications.
Psych was consulted because pt was experiencing auditory hallucination, per psych since pt is stable,�do not feel need to medicate at this time.
Checking b12, folate and vit d�
# Benign Hypertension�- Stable.�
Continue nifedipine with holding parameters.
Adjust regimen as needed.
# Prior CVA - Stable.�
CT scan shows no new findings.� Old area of encephalomalacia.
Continue daily ASA.
Follow for any new / focal neurologic complaints.
# Hypokalemia
replete
DVT Prophylaxis:�Lovenox SQ
Code Status:� Full
Dispo: SNF per PT eval
Anticipated Discharge: 24 - 48 hours
Subjective/Interval History
-
Date of Service: September 23, 2023
Objective Data
-
Labs:
Laboratory Results
09/23/23
04:35
WBC 8.1
Hgb 12.9
Hct 38.8
Plt Count 144
Sodium 138
Potassium 3.4 L
Chloride 107
Carbon Dioxide 25
BUN 18 H
Creatinine 0.6
Glucose 95
Calcium 9.0
Vital Signs:
Vital Signs
Temp Pulse Resp BP Pulse Ox
37.0 C 84 16 142/87 96
09/23/23 07:45 09/23/23 07:45 09/23/23 07:45 09/23/23 09:07 09/23/23 09:19
I&O
09/22/23 09/23/23 09/24/23
06:59 06:59 06:59
Intake Total 4680 / 4680
Output Total 1800 / 1800
Balance 2880 / 2880
Review of Systems
-
All other systems: Reviewed and negative
Physical Exam
-
General: Well Developed, Well Nourished, No Apparent Distress, Comfortable and Conversant
HEENT: Normocephalic, Nose Appears Normal and Ears Appear Normal
Respiratory: Clear to Auscultation and Non Labored Respirations; Negative Wheezes or Accessory Resp Muscle Use
Cardiac: Regular Rhythm and S1/S2
GI: Soft, Nontender and Nondistended
Skin: Warm and Dry; Negative Rash
Psych: Calm; Negative Intact Judgement/Insight
Data Reviewed
-
CT Scan: Report Reviewed by me
Labs: Labs Reviewed by me
[2023-09-23 14:25] LABS: Vitamin D, 25-OH*** < 12.8 ng/mL (30-80)
--- NOTE | 2023-09-23 14:47 | CM ---
Reviewed the chart notes and spoke with the patient at the bedside. The patient is confused. Spoke with the patient's brother at the bedside. The patient resides alone in a first floor apartment. The patient has a cane, he is not sure she uses
it. The patient has not had VN in the past, but has been to [facility]. The patient's brother is hoping for SNF/rehab prior to returning to home. PT/OT recommending SNF. Per brother, the patient has a caregiver twice a week to take her out
shopping, to lunch, dr. appointments, etc. This is a private pay provider. The patient lives in [place] and visits every other week. CM continues to be available to patient/family and is monitoring medical plan for needs at discharge.
Plan: Discharge to SNF once bed found and precert obtained. Patient's brother agreeable to referral being sent to [facility].
[2023-09-23 15:14] LABS: Folate 14.6 ng/ml (2.76-20); Vitamin B12 285 pg/ml (239-931)
--- NOTE | 2023-09-23 17:33 | PTCARENOTE ---
pt was oob to the chair for majority of the shift. pt slept a total of 2 hours throughout this nurses shift. compared to 09/22 pt was talking at low tone level to 'someone' in the room. pleasant conversations occurred and no episodes of tachycardia
are noted. pt had good appetite for this nurse this AM but did not eat lunch.
[2023-09-23] MEDS: LOVENOX 40 MG SC (18:07)
[2023-09-24] VITALS (8 sets, daily range): BP systolic 125–171; BP diastolic 74–90; PULSE 75–105
[2023-09-24 00:14] LABS: Keppra (Levetiracetam) <2 ug/mL (10-40)
[2023-09-24 04:55] LABS: Hemoglobin 12.3 g/dL (12.0-16.0); Mean Corp Hgb Conc. 32.4 g/dL (33.0-37.0); Mean Corpuscular Hgb 31.1 pg (27.0-31.0); Mean Corpuscular Volume 96.2 fL (81.0-99.0); Mean Platelet Volume 10.8 fL (7.4-10.4); Platelet Count 151 10^3/uL (130-400); Red Blood Cell Count 3.95 10^6/uL (4.20-5.40); Red Cell Dist. Width 13.1 % (11.5-14.5); White Blood Cell Count 7.3 10^3/uL (4.8-10.8)
[2023-09-24 05:18] LABS: Blood Urea Nitrogen 15 mg/dl (7-17); Calcium 9.1 mg/dl (8.4-10.2); Carbon Dioxide 25 mmol/L (22-30); Chloride 104 mmol/L (98-107); Estimated Creatinine Clearance 89 ml/min; Glucose 98 mg/dl (70-99); Magnesium 1.8 mg/dl (1.6-2.3); Potassium 3.4 mmol/L (3.5-5.1); Sodium 140 mmol/L (135-145); eGFR > 60.00
[2023-09-24] MEDS: LR 1000 IV ×3 (05:36→18:40)
[2023-09-24 05:56] LABS: Creatine Phosphokinase 926 U/L (30-135)
[2023-09-24] MEDS: PROCARDIA XL (EXTENDED RELEASE) 30 MG PO (08:34)
[2023-09-24] MEDS: KEPPRA 1000 MG IV ×2 (08:34→20:42)
[2023-09-24] MEDS: ASPIR LOW (ENTERIC COATED) 81 MG PO (08:34)
[2023-09-24] MEDS: DESENEX/MITRAZOL/ZEASORB 1 APPLIC TOPICAL ×2 (08:36→20:46)
--- NOTE | 2023-09-24 09:50 | CM ---
Addendum entered by Vandana Florence RN 09/24/23 16:13:
IMM signed and placed on chart.
Addendum entered by Vandana Florence RN 09/24/23 14:52:
SNF approved from 09/24/23 - 09/26/23 at [facility]. NRD on 09/27/23, attn to Keri Rogersan, her phone number is [phone]. REF: [id number].
Original Note:
Reviewed chart notes. Auth started in [facility] for [facility]. Pended # [id number]. Clinicals faxed to .
[facility] NPI# [id number]
Dr. Motley NPI# [id number]
Plan: Discharge to [facility] with exceptional to [facility].
--- NOTE | 2023-09-24 11:48 | W.PN.UPDATE ---
Update Note
Progress Note Update
patient seen chart reviewed. spoke with nursing case mgt and patient's aide. patient was in an unhappy state she c.o pain in her hand. she said she did not want to talk 'now'. i asked nursing what was going on. apparently her iv had needed
changing and they had some difficulty getting it back in. returned to explain to patient why her hand hurt and informed her nursing will get an ice pack for her. cm tells me lyn have spoken w yessy and despite patient's psych issues she does okay at
home w her aide when she is well. snf is being sought for her prior to dc back to home. will return to talk to mrs pisano in am.
--- NOTE | 2023-09-24 12:15 | W.PN.HOSP.TC ---
Today's Communication/Plan
-
see bold
Assessment / Plan
Assessment / Plan
78y F with PMH significant for seizure disorder, hypertension and mood disorder who presented to ED after being 'found down' at home by emergency services during a well check.�Patient was brought to the ED for evaluation.�
Here she complained of low back discomfort; though, she cannot say whether or not she fell or injured herself in any way.�Patient had witnessed seizure activity in the ED.� She was treated with IV Ativan and then loaded with IV Keppra.
At the time of admission, patient was awake and alert.� She moves all extremities and answers questions - though she cannot recall how she ended up on the floor at home, how long she was there, etc.
She states that she had only one seizure previously and it was 'ages ago'.
Gen: NAD, Awake and alert, NCAT
Eyes: EOMI, PERRLA, no scleral icterus.
Neck: supple.
CV: RRR, +S1/S2, no m/r/g.
Resp: CTAB, no rales, wheezes, or rhonchi.
Abd: +BS, soft, NT, ND
Skin: No rashes. 2+ B/L LE edema
Neuro: CN 2-12 intact, non-focal.
Psych: anxious
Acute seizure active, seizure disorder:
-Found Down with non-traumatic Rhabdomyolysis
-witnessed seizure in ED
-unclear if seizure caused her initial collapse, or if event was secondary to lack of meds due to prior syncope, fall, etc.
-Telemetry so far without arrhythmia.
-CT head unrevealing, CT neck without fracture, CT AP without gross acute posttraumatic abnormality throughout the abdomen and pelvis.
-CPK improving with IVFs (decrease rate with LE edema)
-Neuro following
-s/p Keppra load in the ED, continue Keppra 1000mg BID
-EEG without seizure activity
Mood Disorder
-h/o suspected psychosis, psychiatric hospitalizations, etc.
-denies SI/HI. Poor insight.
-No apparent active psychotropic medications.
-Psych was consulted because pt was experiencing auditory hallucination, per psych since pt is stable,�do not feel need to medicate at this time. Will ask psych to see in follow up today.
-note, B12 lower end of normal range, folate normal
Other problems:
Vitamin D deficiency: Start oral vitamin D
Essential Hypertension: cont Procardia XL
h/o CVA: cont ASA
Hypokalemia: PO K
Mild leukocytosis, likely reactive, resolved
FULL/Lovenox
Anticipated Discharge: 24 - 48 hours
Subjective/Interval History
-
Date of Service: September 24, 2023
Pt has been hearing voices. Also convinced that both of her legs and multiple toes are broken. Denies CP/SOB.
Objective Data
-
Labs:
Laboratory Results
09/24/23
04:32
WBC 7.3
Hgb 12.3
Hct 38.0
Plt Count 151
Sodium 140
Potassium 3.4 L
Chloride 104
Carbon Dioxide 25
BUN 15
Creatinine 0.6
Glucose 98
Calcium 9.1
Vital Signs:
Vital Signs
Temp Pulse Resp BP Pulse Ox
97.3 F 81 18 161/74 98
09/24/23 11:43 09/24/23 11:43 09/24/23 11:43 09/24/23 11:43 09/24/23 11:43
I&O
09/23/23 09/24/23 09/25/23
06:59 06:59 06:59
Intake Total 4680 / 4680 4740 / 4740
Output Total 1800 / 1800 1500 / 1500
Balance 2880 / 2880 3240 / 3240
--- NOTE | 2023-09-24 14:22 | W.PN.UPDATE ---
Update Note
Progress Note Update
spoke with brother who feels strongly that his sister needs antipsychotic medication given her hallucinations. he said he had taken her to a psychiatrist in the past and he strongly recommended antipsychotics. i agree that antipsychotics might
help her to organize her thinking and maybe diminish hallucinations but my concern was that she would not take it and antipsychotics do lower the sz threshhold. discussed w brother that there is an element of dementia here as well and he agrees
that this has been very obvious to him. will start risperdal o.5 mg po q hs. she will be going to snf so there will be several weeks where she is getting meds regularly monitored in order to see if they have a + effect and should be continued. this
dose can be increased depending on response. .
[2023-09-24] MEDS: VITAMIN D3 (cholecalciferol) 125 MCG PO (14:52)
[2023-09-24] MEDS: KCL 40 MEQ PO ×2 (15:05→15:07)
[2023-09-24] MEDS: KLOR-CON 40 MEQ PO (15:12)
[2023-09-24] MEDS: LOVENOX 40 MG SC (18:21)
[2023-09-24] MEDS: FLUSH (NSS) 2 FLUSH IV (20:47)
[2023-09-24] MEDS: RISPERDAL M-TAB (ORALLY DISINTEGRATING) 0.5 MG PO (21:14)
[2023-09-25 03:32] VITALS: BP 177/87
[2023-09-25 07:46] VITALS: BP 152/84
[2023-09-25 07:58] LABS: Hematocrit 38.8 % (37.0-47.0); Hemoglobin 13.2 g/dL (12.0-16.0); Mean Corpuscular Hgb 31.1 pg (27.0-31.0); Mean Corpuscular Volume 91.5 fL (81.0-99.0); Mean Platelet Volume 10.8 fL (7.4-10.4); Platelet Count 152 10^3/uL (130-400); Red Blood Cell Count 4.24 10^6/uL (4.20-5.40); Red Cell Dist. Width 13.1 % (11.5-14.5); White Blood Cell Count 5.7 10^3/uL (4.8-10.8)
[2023-09-25 08:15] LABS: Blood Urea Nitrogen 16 mg/dl (7-17); Calcium 9.3 mg/dl (8.4-10.2); Carbon Dioxide 25 mmol/L (22-30); Chloride 106 mmol/L (98-107); Creatine Phosphokinase 524 U/L (30-135); Estimated Creatinine Clearance 89 ml/min; Glucose 109 mg/dl (70-99); Potassium 4.1 mmol/L (3.5-5.1); Sodium 138 mmol/L (135-145); eGFR > 60.00
[2023-09-25] MEDS: LR 1000 IV (08:36)
[2023-09-25] MEDS: KEPPRA 1000 MG IV (08:37)
[2023-09-25] MEDS: PROCARDIA XL (EXTENDED RELEASE) 30 MG PO (08:37)
[2023-09-25] MEDS: ASPIR LOW (ENTERIC COATED) 81 MG PO (08:38)
[2023-09-25] MEDS: VITAMIN D3 (cholecalciferol) 125 MCG PO (08:38)
[2023-09-25] MEDS: DESENEX/MITRAZOL/ZEASORB 1 APPLIC TOPICAL (08:38)
[2023-09-25 10:56] VITALS: BP 120/64
--- NOTE | 2023-09-25 11:32 | W.PN.HOSP.TC ---
Today's Communication/Plan
-
Diet as tolerated
Case management to review best way to discharge.
Assessment / Plan
Assessment / Plan
78y F with PMH significant for seizure disorder, hypertension and mood disorder who presented to ED after being 'found down' at home by emergency services during a well check.�Patient was brought to the ED for evaluation.� Here she complained of
low back discomfort; though, she cannot say whether or not she fell or injured herself in any way.�Patient had witnessed seizure activity in the ED.� She was treated with IV Ativan and then loaded with IV Keppra. At the time of admission, patient
was awake and alert.� She moves all extremities and answers questions - though she cannot recall how she ended up on the floor at home, how long she was there, etc.
She states that she had only one seizure previously and it was 'ages ago'.
Initial exam:
Gen: NAD, Awake and alert, NCAT
Eyes: EOMI, PERRLA, no scleral icterus.
Neck: supple.
CV: RRR, +S1/S2, no m/r/g.
Resp: CTAB, no rales, wheezes, or rhonchi.
Abd: +BS, soft, NT, ND
Skin: No rashes. 2+ B/L LE edema
Neuro: CN 2-12 intact, non-focal.
Psych: anxious
1. Acute seizure active, seizure disorder: No recent activity in the hospital
-Found Down with non-traumatic Rhabdomyolysis
-witnessed seizure in ED
-unclear if seizure caused her initial collapse, or if event was secondary to lack of meds due to prior syncope, fall, etc.
-Telemetry so far without arrhythmia.
-CT head unrevealing, CT neck without fracture, CT AP without gross acute posttraumatic abnormality throughout the abdomen and pelvis.
-CPK improving with IVFs (decrease rate with LE edema)
-Neuro following
-EEG without seizure activity
-s/p Keppra load in the ED,
continue Keppra 1000mg BID
2. Mood Disorder, stable
-h/o suspected psychosis, psychiatric hospitalizations, etc.
-denies SI/HI. Poor insight.
-No apparent active psychotropic medications.
-Psych was consulted because pt was experiencing auditory hallucination, per psych since pt is stable,�do not feel need significant medication at this time.
-Risperidone at night added.
-note, B12 lower end of normal range, folate normal
3. Dispo, may not be safe to go home as she was before
- likely will need rehab or increased home services
Other problems:
Vitamin D deficiency: Start oral vitamin D
Essential Hypertension: cont Procardia XL
h/o CVA: cont ASA
Hypokalemia: PO K
Mild leukocytosis, likely reactive, resolved
Code: FULL
DVTp Lovenox
Anticipated Discharge: 24 - 48 hours
Subjective/Interval History
-
Date of Service: September 25, 2023
pleasantly confused. No new complaints.
Objective Data
-
Labs:
Laboratory Results
09/25/23
07:33
WBC 5.7
Hgb 13.2
Hct 38.8
Plt Count 152
Sodium 138
Potassium 4.1
Chloride 106
Carbon Dioxide 25
BUN 16
Creatinine 0.6
Glucose 109 H
Calcium 9.3
Vital Signs:
Vital Signs
Temp Pulse Resp BP Pulse Ox
97.3 F 84 16 120/64 100
09/25/23 10:56 09/25/23 10:56 09/25/23 10:56 09/25/23 10:56 09/25/23 10:56
I&O
09/24/23 09/25/23 09/26/23
06:59 06:59 06:59
Intake Total 4740 / 4740 1620 / 1620
Output Total 1500 / 1500 950 / 950
Balance 3240 / 3240 670 / 670
Review of Systems
-
Unable to obtain full review of systems at this time due to: Dementia
History Source: Patient
Physical Exam
-
General: Well Developed, Well Nourished, No Apparent Distress and Comfortable
HEENT: Normocephalic, Atraumatic, Moist Mucous Membranes, Nose Appears Normal and Ears Appear Normal
Respiratory: Clear to Auscultation
Cardiac: Regular Rhythm and S1/S2
GI: Soft, Nontender and Nondistended
Musculoskeletal: No Clubbing, No Cyanosis and No Edema
Skin: Warm and Dry; Negative Rash or Ulcers
Neuro: Awake and Alert
Psych: Calm and Confused (mildly)
Data Reviewed
-
Labs: Labs Reviewed by me
--- NOTE | 2023-09-25 13:50 | W.PN.UPDATE ---
Update Note
Progress Note Update
patient seen chart reviewed. just started risperdal last night but curiously patient already seemed better to me. she was much less pressured in her speech and thought process was more organized. she participated quite coherently in a conversation
about her hair...how she dyes and styles it. she told me about her salon....she also told me a bit about her dietary prefences. there was no talk of hallucinations etc. i checked with staff who also note an improvement. perhaps she is no longer
post ictal and that is why the improvement. if it is risperdal it is an amazingly fast result. will follow
[2023-09-25 14:47] VITALS: BP 170/88
[2023-09-25] MEDS: LOVENOX SC (17:09)
--- NOTE | 2023-09-25 17:11 | PTCARENOTE ---
IV line was infiltrated IV team came to put a new one in.. pt is aggressively refusing a new line and shes getting LR at 75ml/hr. the patient said the voices in her head are telling her shes leaving and even with redirection she would not let us put
in a new line unless she hears it from a doctor. made aware of situation and told nurse to try and get new access after risperdal dose this evening. pt currently has no IV access and is sitting on the side of the bed, bed alarm intact.
[2023-09-25 19:21] VITALS: BP 160/73
--- NOTE | 2023-09-25 20:04 | VATNOTE ---
Called by residential treatment staff to place IV, pt. in chair, states, 'I'm being told by my brother, you're not to touch me.' rv mechanic @ bedside, aware of same.
[2023-09-25] MEDS: KEPPRA IV (20:27)
--- NOTE | 2023-09-25 20:30 | PTCARENOTE ---
Addendum entered by Bryce Franklin RN 09/26/23 03:42:
Several attempts to persuade patient into receiving an IV site following the Risperdal have been unsuccessful. Patient continues to adamantly refuse.
Original Note:
Patient adamantly refused again an IV site. She hears voices and says her brother told her not to. This RN explained again how vital and important it is to have IV access since she has a history of seizures and needs IV access for medications like
Keppra, Ativan and IVFs. The IV team nurse came and attempted to talk her into it and find a vein, but the patient became more and more agitated. She still adamantly refuses IV access. Covering provider is aware and made some changes to the orders.
As recommended, the RN will try again to convince her after she has her Risperdal HS.
--- NOTE | 2023-09-25 20:33 | W.PN.UPDATE ---
Update Note
Progress Note Update
RN notified PLANT CUSTODIAN patient IV access is infiltrated. IV team tried another access once and unsuccessful as she is a hard stick. Patient refused another try by IVT. RN concerned of IV medication Keppra to be changed to PO. With the help of Pharmacist
Keppra PO order is in place. Patient is also on tele, advised RN to try again when she calms down after PO Ativan.
[2023-09-25] MEDS: KEPPRA 1000 MG PO (20:41)
[2023-09-25] MEDS: ATIVAN 0.5 MG PO (20:41)
[2023-09-25] MEDS: DESENEX/MITRAZOL/ZEASORB TOPICAL (20:48)
[2023-09-25] MEDS: RISPERDAL M-TAB (ORALLY DISINTEGRATING) 0.5 MG PO (22:05)
[2023-09-25 23:46] VITALS: BP 121/73
[2023-09-26] VITALS (8 sets, daily range): BP systolic 116–153; BP diastolic 57–77; PULSE 90; O2SAT 91
[2023-09-26 08:46] LABS: Hematocrit 40.9 % (37.0-47.0); Hemoglobin 13.6 g/dL (12.0-16.0); Mean Corp Hgb Conc. 33.3 g/dL (33.0-37.0); Mean Corpuscular Hgb 31.6 pg (27.0-31.0); Mean Corpuscular Volume 95.1 fL (81.0-99.0); Mean Platelet Volume 10.5 fL (7.4-10.4); Platelet Count 167 10^3/uL (130-400); Red Cell Dist. Width 13.1 % (11.5-14.5); White Blood Cell Count 6.1 10^3/uL (4.8-10.8)
[2023-09-26] MEDS: KEPPRA 1000 MG PO ×2 (08:56→21:00)
[2023-09-26] MEDS: TYLENOL 650 MG PO (08:56)
[2023-09-26] MEDS: ASPIR LOW (ENTERIC COATED) 81 MG PO (08:56)
[2023-09-26] MEDS: PROCARDIA XL (EXTENDED RELEASE) 30 MG PO (08:56)
[2023-09-26] MEDS: VITAMIN D3 (cholecalciferol) 125 MCG PO (08:57)
[2023-09-26] MEDS: DESENEX/MITRAZOL/ZEASORB 1 APPLIC TOPICAL ×2 (08:58→21:02)
[2023-09-26 09:50] LABS: Blood Urea Nitrogen 21 mg/dl (7-17); Calcium 9.7 mg/dl (8.4-10.2); Carbon Dioxide 27 mmol/L (22-30); Chloride 101 mmol/L (98-107); Estimated Creatinine Clearance 76 ml/min; Glucose 124 mg/dl (70-99); Potassium 4.2 mmol/L (3.5-5.1); Sodium 140 mmol/L (135-145); eGFR > 60.00
--- NOTE | 2023-09-26 10:38 | W.PN.UPDATE ---
Update Note
Progress Note Update
patient seen chart reviewed. discussed w nursing. the patient's iv infiltrated and it was difficult to restart. it was my impression she could be taking po keppra at this point and apparently keppra has been switched to po. the patient herself was
again with me today very pleasant. she said she is longing for a nice hot bath. she is at baseline still confused in my opinion secondary to underlying dementia but in contrast to her early presentation she is now able to focus on a topic and chat
whereas that was not possible at in the days following admission. today she reminisced with me about her childhood father was a gem and he would let her come with him when he was walking in the [place] and not hunting on that day. she also talked
about foopd shopping with her family at the [employer] and how tasty the meat was. is is my impression that she is at her baseline. she slept very well according to nursing and patient says 'i go to bed and go right out'. psych will sign off at this
point. it is my understanding that snf was being sought and the goal is return to home with support. no changes made in psych meds.
--- NOTE | 2023-09-26 10:56 | W.PN.HOSP.TC ---
Today's Communication/Plan
-
d/c
Assessment / Plan
Assessment / Plan
78y F with PMH significant for seizure disorder, hypertension and mood disorder who presented to ED after being 'found down' at home by emergency services during a well check.�Patient was brought to the ED for evaluation.� Here she complained of
low back discomfort; though, she cannot say whether or not she fell or injured herself in any way.�Patient had witnessed seizure activity in the ED.� She was treated with IV Ativan and then loaded with IV Keppra. At the time of admission, patient
was awake and alert.� She moves all extremities and answers questions - though she cannot recall how she ended up on the floor at home, how long she was there, etc. She states that she had only one seizure previously and it was 'ages ago.'
Gen: NAD, Awake and alert
Eyes: EOMI, PERRLA, no scleral icterus.
Neck: supple.
CV: RRR, +S1/S2, no m/r/g.
Resp: CTAB, no rales, wheezes, or rhonchi.
Abd: +BS, soft, NT, ND
Skin: No rashes. 1+ LE edema.
Neuro: CN 2-12 intact, non-focal.
Psych: mostly normal mood and affect.
Acute seizure active, seizure disorder:
-No seizure activity in the hospital
-Found Down with non-traumatic Rhabdomyolysis
-witnessed seizure in ED
-unclear if seizure caused her initial collapse, or if event was secondary to lack of meds due to prior syncope, fall, etc.
-Telemetry so far without arrhythmia.
-CT head unrevealing, CT neck without fracture, CT AP without gross acute posttraumatic abnormality throughout the abdomen and pelvis.
-CPK improved with IVFs
-Neuro following
-EEG without seizure activity
-s/p Keppra load in the ED, continue Keppra 1000mg BID
Mood Disorder, stable
-h/o suspected psychosis, psychiatric hospitalizations, etc.
-denies SI/HI. Poor insight.
-No apparent active psychotropic medications.
-Psych was consulted because pt was experiencing auditory hallucination, per psych since pt is stable,�they did not feel need significant medication. Then Risperidone HS added. Psych has now signed off.
-note, B12 lower end of normal range, folate normal
Other problems:
Vitamin D deficiency: cont oral vitamin D
Essential Hypertension: cont Procardia XL
h/o CVA: cont ASA
Hypokalemia, resolved
Mild leukocytosis, likely reactive, resolved
FULL/Lovenox
Medically cleared for d/c. Case management aware.
Anticipated Discharge: Today
Subjective/Interval History
-
Date of Service: September 26, 2023
Pt is concerned her wrists are bruised. Denies CP/SOB.
Objective Data
-
Labs:
Laboratory Results
09/26/23 09/26/23
08:28 09:29
WBC 6.1
Hgb 13.6
Hct 40.9
Plt Count 167
Sodium Cancelled 140
Potassium Cancelled 4.2
Chloride Cancelled 101
Carbon Dioxide Cancelled 27
BUN Cancelled 21 H
Creatinine Cancelled 0.7
Glucose Cancelled 124 H
Calcium Cancelled 9.7
Vital Signs:
Vital Signs
Temp Pulse Resp BP Pulse Ox
97.6 F 80 16 137/77 97
09/26/23 07:20 09/26/23 07:20 09/26/23 07:20 09/26/23 07:20 09/26/23 07:20
I&O
09/25/23 09/26/23 09/27/23
06:59 06:59 06:59
Intake Total 1620 / 1620 2079 / 2079
Output Total 950 / 950 300 / 300
Balance 670 / 670 178 / 178
--- NOTE | 2023-09-26 12:32 | CM ---
Chart reviewed and per physician patient has been cleared for discharge today, case repairer reviewed PT/OT notes and checked Auth. Patient's original Auth through [employer] expires today and when case repairer spoke with admissions at [facility]
they are stating that they will require new Auth, case repairer spoke with PT/OT who will see patient today.
Plan; Wait on updated Pt/OT notes patient needs a new Auth.
[2023-09-26] MEDS: LOVENOX SC (17:01)
[2023-09-26] MEDS: RISPERDAL M-TAB (ORALLY DISINTEGRATING) 0.5 MG PO (21:01)
[2023-09-27 03:34] VITALS: BP 137/74
[2023-09-27 03:36] VITALS: BP 136/81; BP 137/74; PULSE 108; PULSE 84
[2023-09-27 07:20] VITALS: BP 150/81
--- NOTE | 2023-09-27 07:51 | W.PN.HOSP.TC ---
Today's Communication/Plan
-
d/c
Assessment / Plan
Assessment / Plan
78y F with PMH significant for seizure disorder, hypertension and mood disorder who presented to ED after being 'found down' at home by emergency services during a well check.�Patient was brought to the ED for evaluation.� Here she complained of
low back discomfort; though, she cannot say whether or not she fell or injured herself in any way.�Patient had witnessed seizure activity in the ED.� She was treated with IV Ativan and then loaded with IV Keppra. At the time of admission, patient
was awake and alert.� She moves all extremities and answers questions - though she cannot recall how she ended up on the floor at home, how long she was there, etc. She states that she had only one seizure previously and it was 'ages ago.'
Gen: NAD, Awake and alert
Eyes: EOMI, PERRLA, no scleral icterus.
Neck: supple.
CV: Remains RRR, +S1/S2, no m/r/g.
Resp: CTAB, no rales, wheezes, or rhonchi.
Abd: +BS, soft, NT, ND
Skin: No rashes. Trace LE edema.
Neuro: CN 2-12 intact, non-focal.
Psych: Flat affect.
Acute seizure active, seizure disorder:
-No seizure activity in the hospital
-Found Down with non-traumatic Rhabdomyolysis
-witnessed seizure in ED
-unclear if seizure caused her initial collapse, or if event was secondary to lack of meds due to prior syncope, fall, etc.
-Telemetry so far without arrhythmia.
-CT head unrevealing, CT neck without fracture, CT AP without gross acute posttraumatic abnormality throughout the abdomen and pelvis.
-CPK improved with IVFs
-Neuro following
-EEG without seizure activity
-s/p Keppra load in the ED, continue Keppra 1000mg BID
Mood Disorder, stable
-h/o suspected psychosis, psychiatric hospitalizations, etc.
-denies SI/HI. Poor insight.
-No apparent active psychotropic medications.
-Psych was consulted because pt was experiencing auditory hallucination, per psych since pt is stable,�they did not feel need significant medication. Then Risperidone HS added. Psych has now signed off.
-note, B12 lower end of normal range, folate normal
Other problems:
Vitamin D deficiency: cont oral vitamin D
Essential Hypertension: cont Procardia XL
h/o CVA: cont ASA
Hypokalemia, resolved
Mild leukocytosis, likely reactive, resolved
FULL/Lovenox
Remains medically cleared for d/c. Case management aware.
Anticipated Discharge: Today
Subjective/Interval History
-
Date of Service: September 27, 2023
Patient offers no new complaints.
Objective Data
-
Vital Signs:
Vital Signs
Temp Pulse Resp BP Pulse Ox
97.5 F 84 18 137/74 98
09/27/23 03:34 09/27/23 03:34 09/27/23 03:34 09/27/23 03:34 09/27/23 03:34
I&O
09/26/23 09/27/23 09/28/23
06:59 06:59 06:59
Intake Total 2079 / 2079 1080 / 1080
Output Total 300 / 300 600 / 600
Balance 178 / 1780 480 / 480
[2023-09-27] MEDS: KEPPRA 1000 MG PO ×2 (09:45→20:22)
[2023-09-27] MEDS: VITAMIN D3 (cholecalciferol) 125 MCG PO (09:45)
[2023-09-27] MEDS: VITAMIN B-12 1000 MCG PO (09:45)
[2023-09-27] MEDS: PROCARDIA XL (EXTENDED RELEASE) 30 MG PO (09:45)
[2023-09-27] MEDS: ASPIR LOW (ENTERIC COATED) 81 MG PO (09:45)
[2023-09-27] MEDS: DESENEX/MITRAZOL/ZEASORB 1 APPLIC TOPICAL ×2 (09:47→20:24)
--- NOTE | 2023-09-27 11:51 | CM ---
Addendum entered by Vandana Florence RN 09/27/23 13:51:
IMM provided to the patient. Patient refused to sign. Copy placed on chart.
Original Note:
Reviewed the chart notes and spoke with the patient at the bedside. The per note, the patient's auth for [facility] . New auth started, clinicals faxed to ([phone]). Reference # [id number]. At first [facility] would not accept
referral, but after several tries it appeared to go through. Await auth approval. CM continues to be available to patient/family and is monitoring medical plan for needs at discharge.
Plan: Discharge to [facility] once auth approved.
[2023-09-27 15:25] VITALS: BP 143/84
[2023-09-27] MEDS: LOVENOX SC (17:47)
[2023-09-27] MEDS: RISPERDAL M-TAB (ORALLY DISINTEGRATING) 0.5 MG PO (20:23)
[2023-09-27 23:25] VITALS: BP 154/94
[2023-09-28 08:02] VITALS: BP 130/68; BP 133/68; BP 153/88; PULSE 112; PULSE 73; PULSE 77
[2023-09-28] MEDS: VITAMIN B-12 1000 MCG PO (08:39)
[2023-09-28] MEDS: ASPIR LOW (ENTERIC COATED) 81 MG PO (08:39)
[2023-09-28] MEDS: VITAMIN D3 (cholecalciferol) 125 MCG PO (08:39)
[2023-09-28] MEDS: KEPPRA 1000 MG PO (08:39)
[2023-09-28] MEDS: PROCARDIA XL (EXTENDED RELEASE) 30 MG PO (08:40)
--- NOTE | 2023-09-28 08:56 | CM ---
Addendum entered by Vandana Florence RN 09/28/23 10:39:
Patient's brother Rubio informed of transfer to [facility] today.
Original Note:
Reviewed the chart notes. Patient approved for two days at [facility]; NRD 09/30/2023; Auth # [id number]; Reviewer is Keri Arciniega ; .
Plan: Discharge to [facility] today.
Call report to:
Fax report to:
Medical necessity and transport forms on chart.
[2023-09-28] MEDS: DESENEX/MITRAZOL/ZEASORB 1 APPLIC TOPICAL (09:37)
--- NOTE | 2023-09-28 09:38 | W.PN.HOSP.TC ---
Addendum entered and electronically signed by Tim Kaur MD 09/30/23 11:49:
This patient will likely require less than 30 days for prison facility services as her symptoms and behaviors are stable.
Original Note:
Today's Communication/Plan
-
d/c
Assessment / Plan
Assessment / Plan
78y F with PMH significant for seizure disorder, hypertension and mood disorder who presented to ED after being 'found down' at home by emergency services during a well check.�Patient was brought to the ED for evaluation.� Here she complained of
low back discomfort; though, she cannot say whether or not she fell or injured herself in any way.�Patient had witnessed seizure activity in the ED.� She was treated with IV Ativan and then loaded with IV Keppra. At the time of admission, patient
was awake and alert.� She moves all extremities and answers questions - though she cannot recall how she ended up on the floor at home, how long she was there, etc. She states that she had only one seizure previously and it was 'ages ago.'
Gen: NAD, Awake and alert
Eyes: EOMI, PERRLA, no scleral icterus.
Neck: supple.
CV: Continues to remain RRR, +S1/S2, no m/r/g.
Resp: CTAB, no rales, wheezes, or rhonchi.
Abd: +BS, soft, NT, ND
Skin: Remains no rashes. Trace LE edema.
Neuro: CN 2-12 intact, non-focal.
Psych: remains Flat affect.
Acute seizure active, seizure disorder:
-No seizure activity in the hospital
-Found Down with non-traumatic Rhabdomyolysis
-witnessed seizure in ED
-unclear if seizure caused her initial collapse, or if event was secondary to lack of meds due to prior syncope, fall, etc.
-Telemetry so far without arrhythmia.
-CT head unrevealing, CT neck without fracture, CT AP without gross acute posttraumatic abnormality throughout the abdomen and pelvis.
-CPK improved with IVFs
-Neuro following
-EEG without seizure activity
-s/p Keppra load in the ED, continue Keppra 1000mg BID
Mood Disorder, stable
-h/o suspected psychosis, psychiatric hospitalizations, etc.
-denies SI/HI. Poor insight.
-No apparent active psychotropic medications.
-Psych was consulted because pt was experiencing auditory hallucination, per psych since pt is stable,�they did not feel need significant medication. Then Risperidone HS added. Psych has now signed off.
-note, B12 lower end of normal range, folate normal
Other problems:
Vitamin D deficiency: cont oral vitamin D
Essential Hypertension: cont Procardia XL
h/o CVA: cont ASA
Hypokalemia, resolved
Mild leukocytosis, likely reactive, resolved
FULL/Lovenox
Remains medically cleared for d/c. Case management aware.
Total time spent on d/c = 31 min. This included today's physical exam, progress note, review of laboratory and diagnostic data, preparation of discharge documents and prescriptions, and discussions about the pt's hospital course and discharge plan
with the patient and other medical center manager involved in the patient's care.
Anticipated Discharge: Today
Subjective/Interval History
-
Date of Service: September 28, 2023
Denies chest pain or shortness of breath.
Objective Data
-
Vital Signs:
Vital Signs
Temp Pulse Resp BP Pulse Ox
97.2 F 77 16 130/68 96
09/28/23 08:04 09/28/23 08:40 09/28/23 08:04 09/28/23 08:40 09/28/23 08:04
I&O
09/27/23 09/28/23 09/29/23
06:59 06:59 06:59
Intake Total 1080 / 1080 180 / 180
Output Total 600 / 600
Balance 480 / 480 180 / 180
--- NOTE | 2023-09-28 12:45 | W.DCSUMMARY ---
Discharge Summary
Discharge Data
Date of Admission: 09/22/23
Date of Discharge: 09/28/23
-
Pending Results: No
Hospital Course
Primary diagnoses:
Seizure disorder with acute seizure activity
Nontraumatic rhabdomyolysis
Secondary diagnoses:
Vitamin D deficiency
Essential Hypertension
h/o cerebrovascular accident
Hypokalemia
Mild leukocytosis, likely reactive
Consultants:
Psychiatry
Neurology
Imaging:
CT head: No acute intracranial abnormalities. Old left occipital lobe infarct. Findings again seen compatible with diffuse cortical atrophy with nonspecific white matter changes
CT C-spine: Straightening of the normal cervical lordotic curvature. Degenerative changes. No findings to suggest recent fracture.
CT A/P: Markedly limited evaluation of the abdomen and pelvis without intravenous contrast and as a result of beam hardening artifact by the patient's bilateral upper extremities, in the setting of trauma. No gross acute posttraumatic abnormality
throughout the abdomen and pelvis. Nonacute findings: Cardiomegaly, small hiatal hernia and colonic diverticulosis.
78-year-old female who initially presented after being found down as outlined in the H&P done on admission. Hospital course by problem list:
Seizure disorder with acute seizure activity: Patient was found down with nontraumatic rhabdomyolysis. She had witnessed seizure activity in the ER. She had no further seizure activity while hospitalized. It is unclear if seizure caused her
initial collapse, or if event was secondary to lack of meds due to prior syncope, fall, etc. Imaging was unremarkable as above. EEG was without seizure activity. CPK improved with IV fluids. The patient was seen in consultation by neurology. She
received a Keppra load in the ED and her Keppra dosing was increased 1000 mg twice daily.
Mood Disorder: Patient had a history of suspected psychosis and had prior psychiatric hospitalizations. She was not on active psychotropic medications on admission. Psychiatry was consulted because the patient was experiencing auditory
hallucination. Risperidone at bedtime was added.
Discharge Plan
-
Patient Disposition: Residential/SNF
Discharge Diagnosis/Procedures: Acute seizure activity, seizure disorder
Condition: Good
Diet: No restrictions
Activity: With assistance
Driving Restrictions: No driving
Activity Restrictions/Additional Instructions:
BMP and CBC in 1 week
Referrals:
UNKNOWN - PT DOES,NOT KNOW [Family Provider] -
Prescriptions:
New
levetiracetam 500 mg Tablet
1,000 mg PO BID Qty: 0 0RF
risperidone 0.5 mg Tablet,Disintegrating
0.5 mg PO HS Qty: 0 0RF
cholecalciferol (vitamin D3) 125 mcg (5,000 unit) Tablet
125 mcg PO DAILY Qty: 0 0RF
cyanocobalamin (vitamin B-12) 1,000 mcg Tablet
1,000 mcg PO DAILY Qty: 0 0RF
Continued
levetiracetam 500 MG tablet
500 mg PO DAILY
Patient Comments:
09/21/2023: Pt doesn't always take BID, but mostly takes in the am
aspirin 81 mg Tablet,Delayed Release (Dr/Ec)
81 mg PO DAILY
Patient Comments:
per pt 'not for a few days'
nifedipine 30 mg Tablet Extended Release
30 mg PO DAILY 30 Days Qty: 30 0RF
Patient Comments:
09/21/2023: Pt unsure of name says its a 'really long name' medications on both Dr First and [facility]
Discharge Orders:
Discharge Patient (As Directed); Ordered 09/28/23
Ordered By: Tim Kaur
[2023-09-28] MEDS: ATIVAN 0.5 MG PO (13:00)
== END 2023-09-28 14:57 | DRG 101 ==
LOC: 2 NORTH 02:19
PROVIDERS: Internal Medicine; Student in an Organized Health Care Education/Training Program; ADMITTING PHYSICIAN Hospitalist; ATTENDING PHYSICIAN Internal Medicine; CONSULT PHYSICIAN Psychiatry & Neurology Neurology; CONSULT PHYSICIAN Psychiatry & Neurology Psychiatry; EMERGENCY PHYSICIAN Emergency Medicine
DX: G40.909 Epilepsy, unspecified, not intractable, without status epilepticus (principal); M62.82 Rhabdomyolysis; Z87.891 Personal history of nicotine dependence; F39 Unspecified mood [affective] disorder; I11.9 Hypertensive heart disease without heart failure; Z79.82 Long term (current) use of aspirin; E87.6 Hypokalemia; E55.9 Vitamin D deficiency, unspecified; D72.829 Elevated white blood cell count, unspecified
CPT/HCPCS: 70450; 72125; 74176; 80048; 80053; 80177; 81003; 81015; 82077; 82248; 82306; 82550; 82607; 82746; 83605; 83735; 84100; 84443; 85025; 85027; 87086; 92526; 92610; 93005; 95813; 96361; 96365; 97110; 97116; 97163; 97167; 97530; 97535; 99291

== ENCOUNTER 2023-11-10 13:08 | Emergency (ER) | payer OTHER, SELFPAY ==
[2023-11-10 13:32] VITALS: BP 179/92
[2023-11-10 13:41] VITALS: BMI 32.8
--- NOTE | 2023-11-10 14:11 | EDRN ---
Patient's caregiver at bedside and updated. Caregiver stated that the patient probably has not taken her medicines since she was last with her. Caregiver stated that she is with the patient 2-3 times a week and the patient only takes her meds when
she is there. Caregiver stated that the patient tells her the voices in her head tell her that the medicines are 'poison'. Patient stated that she currently hears her 'friends' and looks away when asked if they are telling her not to take her
medicine.
--- NOTE | 2023-11-10 14:39 | ED.MUSCINJ ---
HPI-Injury
General
Chief Complaint: Fall
Source: patient
Exam Limitations: none
Time Seen by Provider: 11/10/23 13:26
Travel History
Have you had any contact with someone who has COVID-19?: Unable to Answer
Do you have any symptoms of coronavirus? Fever > 100 degrees, chills, cough, shortness of breath, sore throat, loss of taste or smell, muscle aches, or headache?: Unable to Answer
History of Present Illness-Injury
Initial Injury comments:
78-year-old female presents via EMS after being found after a fall. She fell between 2 cars. A bystander called EMS. She was put in a cervical collar and brought here. She typically lives by herself. Does have caregivers that visit her. She
has family that visited her well. Patient has no complaints. She does not know exactly how she fell. No chest pain or shortness of breath. She denies arm or leg pain. No lightheadedness. No other complaint
Past History
Past History
ED Past Medical History: Cancer, CVA, HTN, Hypercholesterolemia and Psychiatric
ED Past Surgical History: Other (Mastectomy)
PSI?: No
Social History
Tobacco: Non-smoker
Alcohol: None
Drug: None
Personal: Single
Living: alone
Employment: Retired
Family History
Family History: Unable to obtain
Phy Exam
Physical Exam
Physical Exam:
General: Well-appearing female no acute respiratory distress
psychiatric exam: Somewhat anxious but cooperative
HEENT: Normocephalic atraumatic neck in cervical collar heart: Regular rate and rhythm no murmurs
Lungs: Clear to auscultation bilaterally no wheezing
Neurologic: Alert and oriented to person place and time no facial asymmetry or droop
Ext: No cyanosis
Skin: warm, no rashes
Injury Course
Orders/Labs/Results
Orders:
Orders
11/10/23 13:36
CT Cervical Spine W/o Iv Contr Urgent
Comment:
Reason For Exam: fall
11/10/23 13:37
CT Head W/o Iv Contrast Urgent
Comment:
Reason For Exam: fall
MDM/Problems Addressed
Differential Diagnosis Includes:
Fall. Likely mechanical. No preceding lightheadedness. Caregiver accompanies her and states this happens frequently. CT of the head and cervical spine were ordered which were negative for acute finding. Per caregiver she is at her baseline.
They are comfortable taking her home. Patient is comfortable going home as well.
Patient alert on my exam No confusion. Does not appear postictal do not suspect seizure. Noted bite mcdonald to the tongue
*Critical Care Note
Total Time (30-74mins, 75-104mins- exclusive of procedures): Not Applicable
ED Attending Note
-
Portions of this chart may have been created with voice recognition software.� Occasional wrong word or��sound alike� substitutions may have occurred due to the inherent limitations of voice recognition software.
Discharge Plan
Departure
Patient Disposition: Home (Routine Discharge)
Date of Disposition: 11/10/23
Time of Disposition: 14:43
Patient with high blood pressure during this ER visit?: No
Discharge Problem:
Fall
Instructions: Preventing falls in adults
Prescriptions:
No Action
levetiracetam 500 MG tablet
500 mg PO DAILY
Patient Comments:
09/21/2023: Pt doesn't always take BID, but mostly takes in the am
aspirin 81 mg Tablet,Delayed Release (Dr/Ec)
81 mg PO DAILY
Patient Comments:
per pt 'not for a few days'
nifedipine 30 mg Tablet Extended Release
30 mg PO DAILY 30 Days Qty: 30 0RF
Patient Comments:
09/21/2023: Pt unsure of name says its a 'really long name' medications on both Dr First and [facility]
levetiracetam 500 mg Tablet
1,000 mg PO BID Qty: 0 0RF
risperidone 0.5 mg Tablet,Disintegrating
0.5 mg PO HS Qty: 0 0RF
cholecalciferol (vitamin D3) 125 mcg (5,000 unit) Tablet
125 mcg PO DAILY Qty: 0 0RF
cyanocobalamin (vitamin B-12) 1,000 mcg Tablet
1,000 mcg PO DAILY Qty: 0 0RF
Referrals:
Carito Barry DO [Family Provider] -
Activity Restrictions/Additional Instructions:
Please continue with medication. Return here for worsening symptoms otherwise follow-up with your treating physician.
Interventions
Interventions:
*Risk Screen - Suicide Last Done: 11/10/23 13:32
*General Assessment Last Done: 11/10/23 13:32
*Neglect/Abuse Screening Last Done: 11/10/23 13:32
ED- Fall Risk Assessment Last Done: 11/10/23 13:43
*ED COVID-19 Vaccine History Last Done: 11/10/23 13:32
ED-Musculoskeletal Assessment Last Done: 11/10/23 13:43
ED- Neurological Assessment Last Done: 11/10/23 13:43
ED-Skin Assessment Last Done: 11/10/23 13:43
--- NOTE | 2023-11-10 15:31 | EDRN ---
REviewed discharge instructions with patient and her caregiver. Verbalized understanding.
[2023-11-10 15:32] VITALS: BP 180/78
== END 2023-11-10 15:34 | disposition home or self-care (01) ==
LOC: EMR 13:08
PROVIDERS: EMERGENCY PHYSICIAN Emergency Medicine; FAMILY PHYSICIAN Family Medicine
DX: Z04.3 Encounter for examination and observation following other accident (principal); W19.XXXA Unspecified fall, initial encounter; I10 Essential (primary) hypertension; E78.00 Pure hypercholesterolemia, unspecified; Z86.73 Personal history of transient ischemic attack (TIA), and cerebral infarction without residual deficits; Z85.9 Personal history of malignant neoplasm, unspecified; Z90.10 Acquired absence of unspecified breast and nipple
CPT/HCPCS: 99284; 70450; 72125

== ENCOUNTER 2024-04-12 12:09 | Emergency (ER) | payer OTHER, SELFPAY ==
[2024-04-12 12:10] VITALS: BP 192/92
--- NOTE | 2024-04-12 13:33 | ED.GENMED ---
History of Present Illness
General
Chief Complaint: Back Pain
Source: patient
Time Seen by Provider: 04/12/24 13:12
History of Present Illness
History of Present Illness:
78yoF with a history of hypertension, prior CVA, seizure disorder, remote history of breast cancer, and psychiatric disorder presenting via EMS for evaluation of back pain. She has been having left-sided low back pain for a while but her pain is
typically mild. Yesterday afternoon around 4 PM, she was sitting on her recliner when she had an abrupt worsening of her pain. She states it felt like a gunshot in the left side of her back. She has been having severe pain since then. She had
several episodes of vomiting yesterday afternoon. She continues to feel nauseous but has not vomited today. She also reports urinary frequency. She denies any abdominal pain, fevers, chest pain, shortness of breath, hematuria, incontinence,
saddle anesthesia. Patient believes that her symptoms are muscular because she lifts the lid of the toilet tank frequently.
Past History
Past History
ED Past Medical History: Cancer, CVA, HTN, Hypercholesterolemia and Psychiatric
ED Past Surgical History: Other (Mastectomy)
PSI?: No
Social History
Tobacco: Non-smoker
Alcohol: None
Drug: None
Personal: Single
Living: alone
Employment: Retired
Family History
Family History: Unable to obtain
Phy Exam
General Physical Exam
General Presentation: well appearing
General age: appears stated age
General Skin: warm and dry
General Habitus: normal
Cardiovascular Exam
Cardiovascular Exam: regular rate/rhythm
Pulmonary Exam
Pulmonary Exam: lungs clear, no respiratory distress, no crackles and no wheezing
Gastrointestinal Exam
Gastrointestinal Exam: non tender, soft, non distended and no cva tenderness
Musculoskeletal Exam
Musculoskeletal Exam: other (+L lower back tenderness. No skin changes. )
Skin Exam
Skin Exam: normal color and warm/dry
Psychiatric Exam
Psychiatric Exam: anxious
Course
Orders/Labs/Results
Orders:
Orders
04/12/24 13:32
CT Abd/pel Without Iv Or Oral Urgent
Comment:
Reason For Exam: L flank pain
Oxycodone/Acetaminophen [Percocet 5/325] 1 tablet PO NOW STA
04/12/24 15:03
Urinalysis Reflex To Culture Urgent
Date Specimen was Collected: 04/12/24
Time Specimen was Collected: 13:39
Urine Microscopic Reflex Cult Urgent
Urine Culture Urgent
ADRIAN Source: U
Specimen Description:
Date Specimen was Collected: 04/12/24
Time Specimen was Collected: 13:39
04/12/24 15:36
Cefdinir [Omnicef] 300 mg PO NOW STA
Abnormal Lab Results
04/12/24
15:03
Urine Ketones Trace A
(Negative)
Ur Occult Blood Reflex 4+ A
(Negative)
Urine Bilirubin 1+ A
(Negative)
Leukocyte Esterase Rfl 1+ A
(Negative)
Urine RBC 80-90 A /HPF
(0-2)
Urine WBC (Reflex) 11-15 A /HPF
(0-5)
Urine Bacteria (Reflex) Moderate A
(Negative)
Urine Albumin (Reflex) 1+ A
(Neg - Trace)
Vital Signs
Initial and Last Documented VS:
Initial Vital Signs
Temp Pulse Resp BP Pulse Ox
99.1 F 70 20 192/92 96
04/12/24 12:10 04/12/24 12:10 04/12/24 12:10 04/12/24 12:10 04/12/24 12:10
Last Documented Vital Signs
Temp Pulse Resp BP Pulse Ox
99.1 F 70 20 192/92 96
04/12/24 12:10 04/12/24 12:10 04/12/24 12:10 04/12/24 12:10 04/12/24 12:10
MDM/Problems Addressed
Differential Diagnosis Includes:
78yoF here with L back pain that started yesterday afternoon. Sudden onset of severe pain. Associated with nausea/vomiting. She believes pain is related to heavy lifting. She is hypertensive with otherwise normal vitals. There is reproducible
tenderness in L lower back. Differential diagnosis includes but is not limited to: kidney stone, pyelonephritis, musculoskeletal, doubt but consider AAA
Initial ED plan: Patient is refusing lab work/IV. Will check CT abdomen without contrast and UA. Percocet for pain.
*Critical Care Note
Total Time (30-74mins, 75-104mins- exclusive of procedures): Not Applicable
Update Note
Update Note:
CT shows mild L hydro with a punctate calculus in the posterior bladder lumen consistent with passed stone. UA shows 11-15 WBC and moderate bacteria. On reassessment, patient is feeling significantly improved and pain is currently a 1/10 in
severity. She is stable for discharge. Urine strainers provided and she was started on a course of cefdinir. Supportive care discussed and script provided for oxycodone. Advised f/u with urology. ED return precautions discussed including fevers. She
expressed understanding and is agreeable to plan. Patient discharged in stable condition.
ED Attending Note
-
Portions of this chart may have been created with voice recognition software.� Occasional wrong word or��sound alike� substitutions may have occurred due to the inherent limitations of voice recognition software.
Discharge Plan
Departure
Patient Disposition: Home (Routine Discharge)
Date of Disposition: 04/12/24
Time of Disposition: 15:36
Patient with high blood pressure during this ER visit?: Yes
Discharge Problem:
Bladder stone, Urinary tract infection
Instructions: Kidney stones in adults, How to Strain Your Urine
Prescriptions:
New
cefdinir 300 mg capsule
300 mg PO BID Qty: 13 0RF
oxycodone 5 mg tablet
5 mg PO Q6H PRN (Reason: Pain) Qty: 8 0RF
No Action
levetiracetam 500 MG tablet
500 mg PO DAILY
Patient Comments:
09/21/2023: Pt doesn't always take BID, but mostly takes in the am
aspirin 81 mg Tablet,Delayed Release (Dr/Ec)
81 mg PO DAILY
Patient Comments:
per pt 'not for a few days'
nifedipine 30 mg Tablet Extended Release
30 mg PO DAILY 30 Days Qty: 30 0RF
Patient Comments:
09/21/2023: Pt unsure of name says its a 'really long name' medications on both Dr First and [facility]
levetiracetam 500 mg Tablet
1,000 mg PO BID Qty: 0 0RF
risperidone 0.5 mg Tablet,Disintegrating
0.5 mg PO HS Qty: 0 0RF
cholecalciferol (vitamin D3) 125 mcg (5,000 unit) Tablet
125 mcg PO DAILY Qty: 0 0RF
cyanocobalamin (vitamin B-12) 1,000 mcg Tablet
1,000 mcg PO DAILY Qty: 0 0RF
Referrals:
Kenneth Ly MD [Active] -
Carito Barry DO [Family Provider] -
Activity Restrictions/Additional Instructions:
Take antibiotics as prescribed. Strain your urine until stone has passed.
Take Tylenol 650mg every 6 hours as needed for pain. Take oxycodone only as needed for severe breakthrough pain.
Please call tomorrow to schedule a follow-up with urology. Return to the ER with any worsening symptoms, severe pain, fevers.
Interventions
Interventions:
*Risk Screen - Suicide Last Done: 04/12/24 13:15
*General Assessment Last Done: 04/12/24 13:15
*Neglect/Abuse Screening Last Done: 04/12/24 13:15
ED- Fall Risk Assessment Last Done: 04/12/24 16:36
*Nursing Disposition Last Done: 04/12/24 16:36
ED-Musculoskeletal Assessment Last Done: 04/12/24 13:15
Discharge Date and Time
Discharge Date/Time: 04/12/24 16:37
Print Language: BURMESE
[2024-04-12] MEDS: PERCOCET 5/325 1 TABLET PO (13:39)
[2024-04-12 15:13] LABS: Urine Albumin 1+ (Neg - Trace); Urine Bilirubin 1+ (Negative); Urine Character Very Cloudy (Clear); Urine Color Yellow; Urine Glucose Negative (Negative); Urine Ketone Trace (Negative); Urine Leukocyte 1+ (Negative); Urine Nitrite Negative (Negative); Urine Occult Blood 4+ (Negative); Urine Specific Gravity 1.025 (<1.030); Urine Urobilinogen Negative (Neg - 1+)
[2024-04-12 15:45] LABS: Urine Bacteria Moderate (Negative); Urine Red Blood Cell 80-90 /HPF (0-2); Urine Squamous Cell 26-30 /LPF (Few)
[2024-04-12] MEDS: OMNICEF 300 MG PO (16:00)
== END 2024-04-12 16:37 | disposition home or self-care (01) ==
LOC: EMR 12:09
PROVIDERS: Physician Assistant; EMERGENCY PHYSICIAN Student in an Organized Health Care Education/Training Program; FAMILY PHYSICIAN Family Medicine
DX: N39.0 Urinary tract infection, site not specified (principal); N21.0 Calculus in bladder; R11.2 Nausea with vomiting, unspecified; I10 Essential (primary) hypertension; E78.00 Pure hypercholesterolemia, unspecified; G40.909 Epilepsy, unspecified, not intractable, without status epilepticus; F99 Mental disorder, not otherwise specified; Z86.73 Personal history of transient ischemic attack (TIA), and cerebral infarction without residual deficits; Z85.3 Personal history of malignant neoplasm of breast; Z91.011 Allergy to milk products
CPT/HCPCS: 99284; 74176; 81003; 81015; 87086

== ENCOUNTER 2024-05-11 17:38 | Inpatient (IN) | payer OTHER, SELFPAY ==
[2024-05-11] VITALS (9 sets, daily range): BP systolic 127–171; BP diastolic 65–96; BMI 33.0; BMI 32.9
[2024-05-11 12:51] LABS: % Basophils 0.4 % (0-2); % Eosinophils 0.6 % (0-6); % Immature Granulocytes 0.4 % (0-0.5); % Lymphocytes 9.2 % (20.5-51.1); % Monocytes 6.8 % (1.7-9.3); % Neutrophils 82.6 % (42.2-75.2); Absolute Eosinophils 0.1 10^3/uL (0-0.7); Absolute Lymphocytes 0.9 10^3/uL (1.2-3.4); Absolute Monocytes 0.7 10^3/uL (0.1-0.6); Absolute Neutrophils 8.2 10^3/uL (1.4-6.5); Hematocrit 41.4 % (37.0-47.0); Hemoglobin 13.8 g/dL (12.0-16.0); Mean Corp Hgb Conc. 33.3 g/dL (33.0-37.0); Mean Corpuscular Hgb 30.8 pg (27.0-31.0); Mean Corpuscular Volume 92.4 fL (81.0-99.0); Mean Platelet Volume 11.3 fL (7.4-10.4); Nucleated Red Blood Cells % 0 %; Platelet Count 180 10^3/uL (130-400); Red Blood Cell Count 4.48 10^6/uL (4.20-5.40); Red Cell Dist. Width 12.6 % (11.5-14.5); White Blood Cell Count 9.9 10^3/uL (4.8-10.8)
--- NOTE | 2024-05-11 13:00 | ED.GENMED ---
History of Present Illness
<Aby Tejeda PA-C - Last Filed: 05/11/24 16:55>
General
Chief Complaint: Chest Pain
Source: patient
Time Seen by Provider: 05/11/24 12:44
History of Present Illness
History of Present Illness:
78yoF with a history of hypertension, seizures, psychiatric disorder, and remote history of breast cancer presenting via EMS for evaluation of right-sided chest pain. Symptoms began about 24 hours ago while she was sitting in her recliner. She
reports a sharp pain in her right lower rib cage underneath her breast that is worse with certain positions and deep breathing. She has not tried anything [id number] for her symptoms. She denies any trauma to her chest wall. She is
otherwise asymptomatic and denies any fevers, cough, vomiting, abdominal pain.
Past History
<Aby Tejeda PA-C - Last Filed: 05/11/24 16:55>
Past History
ED Past Medical History: Cancer, CVA, HTN, Hypercholesterolemia and Psychiatric
ED Past Surgical History: Other (Mastectomy)
PSI?: No
Social History
Tobacco: Non-smoker
Alcohol: None
Drug: None
Personal: Single
Living: alone
Employment: Retired
Family History
Family History: Unable to obtain
Phy Exam
<Aby Tejeda PA-C - Last Filed: 05/11/24 16:55>
General Physical Exam
General Presentation: well appearing and no apparent distress
General age: appears stated age
General Skin: warm and dry
General Habitus: normal
General Mental: alert
ENT Exam
ENT Exam: normocephalic
Cardiovascular Exam
Cardiovascular Exam: regular rate/rhythm
Pulmonary Exam
Pulmonary Exam: lungs clear, no respiratory distress, no rales, no crackles, no wheezing and other (+Tenderness along L lower ribcage. No rash noted. )
Gastrointestinal Exam
Gastrointestinal Exam: non tender, soft and non distended
Skin Exam
Skin Exam: normal color and warm/dry
Psychiatric Exam
Psychiatric Exam: normal mood/affect
Scores
<Aby Tejeda PA-C - Last Filed: 05/11/24 16:55>
Heart Score for Chest Pain Patients
STEMI patient?: No
History: Slightly or Non-Suspicious
ECG: Normal
Age: >/= 65 years
Risk Factors: 1 or 2 Risk Factors
Troponin: </= Normal Limit
Heart Score for Chest Pain Patients: 3
Heart Score Risk: 2.5% MACE over next 6 weeks
Course
<Aby Tejeda PA-C - Last Filed: 05/11/24 16:55>
Orders/Labs/Results
Orders:
Orders
05/11/24 12:21
Electrocardiogram (*1) Urgent
Reason for Study: Chest Pain
EKG- Treatment ONCE
05/11/24 12:25
Complete Blood Count/With Diff Urgent
Troponin I Urgent
05/11/24 12:58
Acetaminophen 1000MG/100Ml [Ofirmev] 1,000 mg in 100 ml IV ONCE
Acetaminophen IV Indication:: ED Narcotic Naive Pt-ONCE
05/11/24 12:59
CR Ribs-right 3 Vw W/pa Chest* Urgent
Comment:
Reason For Exam: R lower rib pain
05/11/24 13:48
Acetaminophen [Tylenol] 1,000 mg PO NOW STA
05/11/24 14:01
Comprehensive Metabolic Panel Urgent
D-Dimer Urgent
Lipase Urgent
05/11/24 14:27
CT Chest Pe Study Urgent
Comment:
Reason For Exam: R lower chest pain, elevated D-dimer
05/11/24 14:54
Urinalysis Reflex To Culture Urgent
Date Specimen was Collected: 05/11/24
Time Specimen was Collected: 16:11
05/11/24 16:10
PTT Urgent
Comment: Obtain baseline before beginning heparin infusion if not already collected
Heparin 4,000 units IV NOW STA
Nursing to Place Non Medication Order As Directed
Physician Order: PTT 6 hours after initial start of Heparin infusion
05/11/24 16:15
Heparin 01510 Units/250 ml 25,000 units in 250 ml IV PER PROTOCOL
Weight to be used for heparin protocol in kilograms (kg):: 94.1
Protocol:: DVT/PE
PTT Goal Range to be used:: PTT 73 to 111 seconds
Order type:: Initial
INITIAL Infusion Dose (UNITS/KG/hr) & then follow protocol:: 18 units/kg/hr
Infusion Dose in UNITS/hr & then follow protocol (UNITS/hr):: 1,700
INFUSION RATE in mL/hr & then follow protocol (mL/hr):: 17
For DVT/PE algorithm, re-bolus for low PTT?: Yes
PTT less than or equal to 64 seconds:: Re-bolus 80 units/kg (max 10,000units). Increase by 400 units/hr
(+ 4mL/hr)
PTT 64.1 to 72.9 seconds:: Re-bolus 40 units/kg (max 5,000 units). Increase by 200 units/hr
(+ 2mL/hr)
PTT 73 to 111 seconds:: Target Range. No change in rate.
PTT 111.1 to 130.9 seconds:: Decrease rate by 200 units/hr (- 2 mL/hr)
PTT 131 to 199.9 seconds:: HOLD for 1 hr. Then decrease by 300 units/hr (- 3mL/hr)
PTT greater than or equal to 200 seconds:: HOLD for 2 hrs & Notify Provider. Then decrease by 400 units/hr
(- 4mL/hr)
Lab follow-up:: Each change, PTT q6h until 2 consecutive are therapeutic. Then
PTT daily.
05/11/24 16:27
Morphine Sulfate 4 mg IV NOW STA
05/11/24 16:45
Heparin 7,500 units IV PRN PRN
05/11/24 16:46
Heparin 3,800 units IV PRN PRN
05/11/24 16:48
Add On- LAB Urgent
Comments:: in lab
Tests Added?: PTT
Abnormal Lab Results
05/11/24 05/11/24
12:25 14:01
MPV 11.3 H fL
(7.4-10.4)
Absolute Neuts (auto) 8.2 H 10^3/uL
(1.4-6.5)
Absolute Lymphs (auto) 0.9 L 10^3/uL
(1.2-3.4)
Absolute Monos (auto) 0.7 H 10^3/uL
(0.1-0.6)
Neutrophils % 82.6 H %
(42.2-75.2)
Lymphocytes % 9.2 L %
(20.5-51.1)
D-Dimer 3.36 H ug/mlFEU
(0.00-0.50)
BUN 22 H mg/dl
(7-17)
Glucose 109 H mg/dl
(70-99)
05/11/24 12:25
05/11/24 14:01
Vital Signs
Initial and Last Documented VS:
Initial Vital Signs
Temp Pulse Resp BP Pulse Ox
98.8 F 89 17 148/67 94
05/11/24 12:10 05/11/24 12:10 05/11/24 12:10 05/11/24 12:10 05/11/24 12:10
Last Documented Vital Signs
Temp Pulse Resp BP Pulse Ox
98.8 F 76 26 152/96 94
05/11/24 12:10 05/11/24 14:00 05/11/24 14:00 05/11/24 14:00 05/11/24 14:00
<Colin Hollis MD - Last Filed: 05/11/24 15:18>
Orders/Labs/Results
Orders:
Orders
05/11/24 12:21
Electrocardiogram (*1) Urgent
Reason for Study: Chest Pain
EKG- Treatment ONCE
05/11/24 12:25
Complete Blood Count/With Diff Urgent
Troponin I Urgent
05/11/24 12:58
Acetaminophen 1000MG/100Ml [Ofirmev] 1,000 mg in 100 ml IV ONCE
Acetaminophen IV Indication:: ED Narcotic Naive Pt-ONCE
05/11/24 12:59
CR Ribs-right 3 Vw W/pa Chest* Urgent
Comment:
Reason For Exam: R lower rib pain
05/11/24 13:48
Acetaminophen [Tylenol] 1,000 mg PO NOW STA
05/11/24 14:01
Comprehensive Metabolic Panel Urgent
D-Dimer Urgent
Lipase Urgent
05/11/24 14:27
CT Chest Pe Study Urgent
Comment:
Reason For Exam: R lower chest pain, elevated D-dimer
05/11/24 14:54
Urinalysis Reflex To Culture Urgent
Date Specimen was Collected: 05/11/24
Time Specimen was Collected: 16:11
05/11/24 16:10
PTT Urgent
Comment: Obtain baseline before beginning heparin infusion if not already collected
Heparin 4,000 units IV NOW STA
Nursing to Place Non Medication Order As Directed
Physician Order: PTT 6 hours after initial start of Heparin infusion
05/11/24 16:15
Heparin 33321 Units/250 ml 25,000 units in 250 ml IV PER PROTOCOL
Weight to be used for heparin protocol in kilograms (kg):: 94.1
Protocol:: DVT/PE
PTT Goal Range to be used:: PTT 73 to 111 seconds
Order type:: Initial
INITIAL Infusion Dose (UNITS/KG/hr) & then follow protocol:: 18 units/kg/hr
Infusion Dose in UNITS/hr & then follow protocol (UNITS/hr):: 1,700
INFUSION RATE in mL/hr & then follow protocol (mL/hr):: 17
For DVT/PE algorithm, re-bolus for low PTT?: Yes
PTT less than or equal to 64 seconds:: Re-bolus 80 units/kg (max 10,000units). Increase by 400 units/hr
(+ 4mL/hr)
PTT 64.1 to 72.9 seconds:: Re-bolus 40 units/kg (max 5,000 units). Increase by 200 units/hr
(+ 2mL/hr)
PTT 73 to 111 seconds:: Target Range. No change in rate.
PTT 111.1 to 130.9 seconds:: Decrease rate by 200 units/hr (- 2 mL/hr)
PTT 131 to 199.9 seconds:: HOLD for 1 hr. Then decrease by 300 units/hr (- 3mL/hr)
PTT greater than or equal to 200 seconds:: HOLD for 2 hrs & Notify Provider. Then decrease by 400 units/hr
(- 4mL/hr)
Lab follow-up:: Each change, PTT q6h until 2 consecutive are therapeutic. Then
PTT daily.
05/11/24 16:27
Morphine Sulfate 4 mg IV NOW STA
05/11/24 16:45
Heparin 7,500 units IV PRN PRN
05/11/24 16:46
Heparin 3,800 units IV PRN PRN
05/11/24 16:48
Add On- LAB Urgent
Comments:: in lab
Tests Added?: PTT
Abnormal Lab Results
05/11/24 05/11/24
12:25 14:01
MPV 11.3 H fL
(7.4-10.4)
Absolute Neuts (auto) 8.2 H 10^3/uL
(1.4-6.5)
Absolute Lymphs (auto) 0.9 L 10^3/uL
(1.2-3.4)
Absolute Monos (auto) 0.7 H 10^3/uL
(0.1-0.6)
Neutrophils % 82.6 H %
(42.2-75.2)
Lymphocytes % 9.2 L %
(20.5-51.1)
D-Dimer 3.36 H ug/mlFEU
(0.00-0.50)
BUN 22 H mg/dl
(7-17)
Glucose 109 H mg/dl
(70-99)
05/11/24 12:25
05/11/24 14:01
Vital Signs
Initial and Last Documented VS:
Initial Vital Signs
Temp Pulse Resp BP Pulse Ox
98.8 F 89 17 148/67 94
05/11/24 12:10 05/11/24 12:10 05/11/24 12:10 05/11/24 12:10 05/11/24 12:10
Last Documented Vital Signs
Temp Pulse Resp BP Pulse Ox
98.8 F 76 26 152/96 94
05/11/24 12:10 05/11/24 14:00 05/11/24 14:00 05/11/24 14:00 05/11/24 14:00
Kavitalt;Aby Tejeda PA-C - Last Filed: 05/11/24 16:55>
MDM/Problems Addressed
Differential Diagnosis Includes:
78yoF here with pleuritic R lower chest pain x 1 day. Oxygen saturation 92-94% in triage. Remainder of vitals stable. There is reproducible chest wall tenderness on exam. Differential diagnosis includes but is not limited to: Costochondritis, early
shingles, pneumonia, pleural effusion, PE
Initial ED plan: Check cardiac labs, D-dimer, EKG, and chest x-ray. IV Tylenol ordered for pain which patient is refusing.
<Aby Tejeda PA-C - Last Filed: 05/11/24 16:55>
*EKG
Interpreted by ED Provider?: Yes
EKG Intrepretation Date: 05/11/24
Heart Rate: 69
Rate: normal
Rhythm: sinus
Ullin: normal axis
Interval: normal interval
QRS Pattern: normal QRS
Ischemia: no ischemia
*Critical Care Note
Total Time (30-74mins, 75-104mins- exclusive of procedures): Not Applicable
<Aby Tejeda PA-C - Last Filed: 05/11/24 16:55>
Update Note
Update Note:
No ischemic changes on EKG and troponin WNL. D-dimer elevated and CTA chest subsequently ordered. CT shows bilateral segmental and subsegmental pulmonary emboli. IV heparin drip ordered and patient was admitted for further management.
ED Attending Note
<Aby Tejeda PA-C - Last Filed: 05/11/24 16:55>
-
Portions of this chart may have been created with voice recognition software.� Occasional wrong word or��sound alike� substitutions may have occurred due to the inherent limitations of voice recognition software.
<Colin Hollis MD - Last Filed: 05/11/24 15:18>
ED Attending Note
Patient seen and examined by attending physician: Yes
ED Attending Note:
I have seen and evaluated the patient with a [id number] encounter. I have spoken to the advance practicer provider and involved in the medical history, the physical exam, medical decision making.
Evaluation and management service: agree unless noted differently below.
Results interpretation: agree unless noted differently below.
Focused HPI: 78-year-old female with past medical history of hypertension, hyperlipidemia, GERD who presents to the ER for evaluation of right chest wall pain. Patient reports onset of symptoms yesterday afternoon while she was at rest and having
constant since that time. She reports a sharp pain underneath her right breast. Worse with movement, worse with breathing, worse laying flat. No relieving factors noted. She denies associated shortness of breath. Denies any edema. No recent
coughing, fevers, chills. Denies other complaints.
Physical exam: Awake alert no distress. Hypertensive otherwise normal vitals. No cardiac rubs gallops or murmurs appreciated. Lungs clear. Tender to palpation right ribs in the area of pain roughly anterior axillary line ribs 6. No rash to
suggest shingles. Abdomen nontender.
Differential diagnosis: Costochondritis, pneumothorax, pneumonia, PE, early shingles, nephrolithiasis, cholecystitis/cholelithiasis considered less likely with benign abdomen and no vomiting
Medical Decision Makin-year-old female presents with right chest wall pain since yesterday. No trauma. Vitals normal. Exam as above. Labs sent off including a CBC and a CMP which were unremarkable. Troponin undetectable. D-dimer was
positive�will send for a CT to rule out PE. She did have chest x-ray with rib series which showed no fracture, tiny right pleural effusion.
Discharge Plan
Departure
Patient Disposition: Admit
Date of Disposition: 05/11/24
Time of Disposition: 16:32
Presentation/result/management discussed w/ accepting MD/DO: Hospitalist
Discharge Problem:
Bilateral pulmonary embolism
Prescriptions:
No Action
levetiracetam 500 MG tablet
1,000 mg PO DAILY
Patient Comments:
09/21/2023: Pt doesn't always take BID, but mostly takes in the am
aspirin 81 mg Tablet,Delayed Release (/Ec)
81 mg PO DAILY
Patient Comments:
per pt 'not for a few days'
nifedipine 30 mg Tablet Extended Release
30 mg PO DAILY 30 Days Qty: 30 0RF
Patient Comments:
09/21/2023: Pt unsure of name says its a 'really long name' medications on both Dr First and [facility]
risperidone 0.5 mg Tablet
0.5 mg PO NOON
Referrals:
Carito Barry DO [Family Provider] -
Interventions
Interventions:
*Risk Screen - Suicide Last Done: 05/11/24 12:10
*General Assessment Last Done: 05/11/24 12:10
*Neglect/Abuse Screening Last Done: 05/11/24 12:10
ED- Fall Risk Assessment Last Done: 05/11/24 12:22
*ED COVID-19 Vaccine History Last Done: 05/11/24 12:10
ED- Cardiac Assessment Last Done: 05/11/24 12:22
Discharge Date and Time
Print Language: MALAWIAN
[2024-05-11 13:12] LABS: Troponin I < 0.012 ng/ml
--- NOTE | 2024-05-11 14:17 | EDRN ---
This RN went to medicate patient per MAR. Patient refused ordered pain medication. Patient states 'I don't understand why no one is giving me anything for my pain. Last time I was here I was given something that worked for my pain. I don't
understand why I can't have that now. I already went through all of this last time I was here'. This RN informed patient that this is what was ordered to start with until we had her kidney functions back. Informed patient that as long as her kidney
functions come back okay she could get toradol per JULIO Tejeda. Patient states that she wants to . Patient has made this statement multiple times since arriving at the ER. This RN offered crisis services for patient, to which patient started
yelling at this RN that she is not suicidal or homicidal. States 'I just wish I was but God won't take me. I am not suicidal'. This RN acknowledged this statement and proceeded to redraw blood specimen. This RN went to send blood to lab and
patient states 'And I haven't eaten all day. Can I get something to eat? I'm starving'. This RN informed patient that she would ask JULIO Tejeda due to pending labs and radiology studies. Patient states that 'If I am not going to get help or be fixed
today, I just want to go home'. This RN informs patient that labs are pending and they will help ED staff determine the best way to treat her. Patient repeats that she just wants to go home. This RN informs patient that if she would truly like to
leave, this RN will inform JULIO Tejeda and she could sign out AMA. Patient then states that she does not want to leave and simply wants something for her pain as well as something to eat. JULIO Tejeda made aware. Patient transported to [facility].
[2024-05-11 14:22] LABS: D-Dimer 3.36 ug/mlFEU (0.00-0.50)
[2024-05-11 14:36] LABS: ALT (SGPT) 13 U/L (0-35); AST (SGOT) 17 U/L (14-36); Albumin 4.3 g/dl (3.5-5.0); Alkaline Phosphatase 120 U/L (38-126); Blood Urea Nitrogen 22 mg/dl (7-17); Calcium 9.4 mg/dl (8.4-10.2); Carbon Dioxide 22 mmol/L (22-30); Chloride 106 mmol/L (98-107); Estimated Creatinine Clearance 59 ml/min; Glucose 109 mg/dl (70-99); Lipase 107 U/L (23-300); Potassium 4.3 mmol/L (3.5-5.1); Sodium 141 mmol/L (135-145); Total Bilirubin 0.7 mg/dl (0.2-1.3); eGFR > 60.00
[2024-05-11] MEDS: MORPHINE SULFATE 4 MG IV (16:51)
--- NOTE | 2024-05-11 16:53 | HPS.HSE ---
Family Physician
-
Family Physician: Carito Barry, DO
Chief Complaint
-
right-sided chest pain
History of Present Illness
Ms. Alea Leblanc is a 78 yo woman with hx HTN, HLD, seizure, remote hx breast CA presents to the ER for right-sided chest pain.
Pain started yesterday when she was sitting in recliner. Hurts to take a deep breath in. No fevers/chills. Pain persisted so she came to the ER. At home she states she generally spends most time sitting. She does walk downtown once a day which
is about a 20 minute walk. Does not use cane or walker, takes breaks along the way.
last mammogram 7 years ago - made decision to not continue to screen.
Medical History
Past Medical History
Past Medical History: Reports Other
Additional Past Medical History:
Seizure Disorder
Mood Disorder +/- Psychosis
Hypertension
Breast Cancer
ASCVD / CVA
Past Surgical History: Reports Other
Additional Past Surgical History:
Lumpectomy x 3
D&C
Social History
Tobacco: Former Smoker
Alcohol: Occasional
Drug: None
Living: Alone
Family History
Family History: Not pertinent
Allergies / Home Medications
Allergies reflects when Allergies were last updated in [employer].
Home Medications with original date entered in [employer]
Allergy/Medication List:
Allergies
Allergy/AdvReac Type Severity Reaction Status Date / Time
lactose Allergy Unknown Unknown Verified 04/12/24 12:12
Home Medications
levetiracetam 500 mg tablet 1,000 mg PO DAILY Neurological Condition 05/13/21
aspirin 81 mg tablet,delayed release 81 mg PO DAILY Blood clot prevention/tx 05/26/22
nifedipine 30 mg tablet,extended release 30 mg PO DAILY 30 days #30 tabs 06/02/22
risperidone 0.5 mg tablet 0.5 mg PO NOON 05/11/24
Review of Systems
-
History Source: Patient
A 12 point ROS was completed and negative except as noted: Yes
Physical Exam
Vital Signs
Vital Signs
Temp Pulse Resp BP Pulse Ox
98.8 F 76 26 152/96 94
05/11/24 12:10 05/11/24 14:00 05/11/24 14:00 05/11/24 14:00 05/11/24 14:00
Physical Exam
General: No Apparent Distress
Respiratory: Clear; No Wheezes
Cardiac: S1/S2 and Regular Rhythm
GI: Soft and Non Tender
Musculoskeletal: No Edema
Skin: Warm and Dry; No Rash
Neuro: AO x 3
Psych: Calm
Laboratory Results
-
05/11/24 12:25
05/11/24 14:01
Laboratory Results
APTT Cancelled 05/11/24 16:10
Total Bilirubin 0.7 mg/dl (0.2-1.3) 05/11/24 14:01
AST 17 U/L (14-36) 05/11/24 14:01
ALT 13 U/L (0-35) 05/11/24 14:01
Alkaline Phosphatase 120 U/L (38-126) 05/11/24 14:01
Troponin I < 0.012 ng/ml 05/11/24 12:25
Lipase 107 U/L (23-300) 05/11/24 14:01
Data Reviewed
-
Diagnostic Radiology: Report Reviewed by me
Lab Data: Labs Reviewed by me
Impression/Plan
-
Ms. Alea Leblanc is a 78 yo woman with hx HTN, HLD, seizure, remote hx breast CA presents to the ER for right-sided chest pain found to have PE.
Triage VS: T 98.8, P 89, RR 17, BP 148/67, SpO2 94%
LABS: WBC 9.9, Hg 13.8, PLT 180, D-dimer 3.36, Na 141, K+ 4.3, Cl 106, CO2 22, Cr 0.9, Glucose 109, liver enzymes WNL, lipase 107
Ribs with Chest X-Ray
IMPRESSION:
Small right pleural effusion.
No radiographic evidence of right-sided rib fractures.
CHEST CT
IMPRESSION:
Pulmonary embolism involving the right lower, left upper, and left lower lobe segmental and subsegmental pulmonary arteries. Some of these filling defects are nonocclusive and may be more subacute to chronic in nature. There is no right heart strain.
Consolidation in the right lower lobe suspicious for developing infarction. Small right pleural effusion.
MAR: IV Heparin gtt, tylenol, IV Morphine
Bilateral Pulmonary Embolism
-no e/o Right Heart strain on CT
-continue IV heparin gtt that was started in the ER
-TTE tomorrow AM
-CM consult for Eliquis
-monitor O2 sats
-PT/OT
-possible transition to Eliquis and DC tomorrow
-hold [employer] aspirin given addition of AC
Remote HX Breast CA
-last mammogram 7 years ago
HTN
-[facility] [employer] Nifdedipine
DVT PPx Heparin gtt
DNR
76 minutes spent on patient care
[2024-05-11 17:07] LABS: APTT 29.8 Sec (23.4-35.0)
[2024-05-11 17:09] LABS: Urine Albumin Trace (Neg - Trace); Urine Bilirubin Negative (Negative); Urine Character Very Cloudy (Clear); Urine Color Yellow; Urine Glucose Negative (Negative); Urine Ketone Negative (Negative); Urine Leukocyte 2+ (Negative); Urine Nitrite Negative (Negative); Urine Occult Blood Negative (Negative); Urine Urobilinogen Negative (Neg - 1+)
[2024-05-11 17:14] LABS: Urine Squamous Cell >30 /LPF (Few)
[2024-05-11 17:16] LABS: Urine White Cell 16-20 /HPF (0-5)
[2024-05-11 17:17] LABS: Urine Red Blood Cell 0-2 /HPF (0-2)
[2024-05-11] MEDS: HEPARIN 4000 UNITS IV (17:54)
[2024-05-11] MEDS: HEPARIN 25000 UNITS/250 ML IV (17:56)
--- NOTE | 2024-05-11 19:34 | PTCARENOTE ---
pt presents from ED via stretcher. pt is AAO*3, Vss, room air. pt c/o 7/10 R chest pain. pt with Hep gtt. Reached out to DYNAM[facility] P[employer]ING MACHINE OPERATOR for pain med. no orders at this time. pt is oriented to the room. call han within the reach. plan of care ongoing.
[2024-05-11] MEDS: MORPHINE SULFATE 2 MG IV (20:58)
[2024-05-12] VITALS (7 sets, daily range): BP systolic 126–156; BP diastolic 60–81; PULSE 67
[2024-05-12] MEDS: PERCOCET 5/325 1 TABLET PO (01:09)
[2024-05-12 01:29] LABS: APTT 131.4 Sec (23.4-35.0)
[2024-05-12 07:30] LABS: APTT 132.1 Sec (23.4-35.0); Hematocrit 38.2 % (37.0-47.0); Hemoglobin 12.7 g/dL (12.0-16.0); Mean Corp Hgb Conc. 33.2 g/dL (33.0-37.0); Mean Corpuscular Volume 93.2 fL (81.0-99.0); Platelet Count 172 10^3/uL (130-400); Red Cell Dist. Width 12.6 % (11.5-14.5); White Blood Cell Count 8.1 10^3/uL (4.8-10.8)
[2024-05-12] MEDS: KEPPRA 1000 MG PO (08:45)
[2024-05-12] MEDS: PROCARDIA XL (EXTENDED RELEASE) 30 MG PO (08:45)
[2024-05-12 08:51] LABS: Blood Urea Nitrogen 22 mg/dl (7-17); Calcium 9.1 mg/dl (8.4-10.2); Carbon Dioxide 20 mmol/L (22-30); Chloride 105 mmol/L (98-107); Estimated Creatinine Clearance 65 ml/min; Glucose 122 mg/dl (70-99); Magnesium 2.1 mg/dl (1.6-2.3); Potassium 4.2 mmol/L (3.5-5.1); Sodium 138 mmol/L (135-145); eGFR > 60.00
[2024-05-12] MEDS: ZOFRAN 4 MG IV (09:38)
[2024-05-12] MEDS: HEPARIN 25000 UNITS/250 ML IV (09:56)
--- NOTE | 2024-05-12 10:28 | CM ---
Patient seen bedside, initial assessment completed. Patient resides independently in a first floor apartment complex, one step to enter. Patient reports she has a brother who lives in [place], a friend who takes her out a few times a week. Patient denies
VN, reports SNF a long time ago, unsure where. Patient denies DME in the home. Patient confirms PCP Carito Barry, pharmacy [facility], confirms prescription coverage, unsure prescription plan. Patient denies insecurities at home.
CM received consult for cost of Eliquis, 10 mg PO BID x 1 week, then 5 mg PO BID. CM spoke with pharmacy staff at [facility], per patients prescription plan, medication is covered with a $22 monthly copay, CM will relay to patient. CM will continue to
follow for all discharge planning needs.
Plan; home with no needs vs VN, watch for needs.
[2024-05-12] MEDS: RISPERDAL 0.5 MG PO (12:41)
--- NOTE | 2024-05-12 13:50 | W.PN.HOSP.TC ---
Today's Communication/Plan
-
pulm consult
switch to eliquis if copay appropriate
Assessment / Plan
Assessment / Plan
CT chest PE
Pulmonary embolism involving the right lower, left upper, and left lower lobe segmental and subsegmental pulmonary arteries. Some of these filling defects are nonocclusive and may be more subacute to chronic in nature. There is no right heart strain.
Consolidation in the right lower lobe suspicious for developing infarction. Small right pleural effusion.
LE venous Doppler
Examination is positive for nonocclusive thrombus involving the left distal femoral, popliteal, peroneal, and posterior tibial veins, in this patient with pulmonary embolism.
No evidence for deep venous thrombosis of the right lower extremity.

1. Bilateral PE - submassive
Left leg DVT
Right lower lobe infarction
Small pleural effusion
-Patient have history of breast cancer with left-sided lumpectomy in the past, has been cancer free after that per patient.
-Denies previous history of blood clots/family history of any clotting disorder
-No recent travel/procedure. Patient walks 1 mile a day roughly.
-CT chest showing bilateral pulmonary embolism, images reviewed
-Lower extremity venous Doppler showing extensive thrombus involving left distal femoral/popliteal/peroneal posterior tibial vein
-CT chest also showing right lobe possible pulmonary infarction and small pleural effusion, patient have some pleuritic discomfort pain
-Troponin negative. Echocardiogram pending
-PESI score 109 class IV - high risk with 30 day mortality rate of 4-11.4%
-Patient currently on heparin drip, continue. will switch to Eliquis in evening if copay acceptable
-Pulmonology evaluation requested and she would benefit with follow-up
2. History of left-sided breast cancer
History of lumpectomy
History of breast radiation
-Has been cancer free after initial surgery few years back
-Primary oncologist has been retired, discussed possible need to follow-up with oncology in [place] although patient stated of unable to do so due to transportation issue.
3. History of seizures
-Maintained on Keppra home dose
4. Essential HTN
-continue on nifedipine
5. Nausea w/o vomiting
-Likely from morphine/oxycodone, discontinued
-Symptomatic care with Zofran
History of mood disorder
Pulmonary nodule
History of stroke
Vitamin D deficiency
DVT PPX - heparin drip
Full code
Total time spent : 53 mins
Anticipated Discharge: Within 24 hours
Subjective/Interval History
-
Date of Service: May 12, 2024
Some right sided lower rib cage pain
Denies of shortness of breath/fever
no other issues
Objective Data
-
Labs:
Laboratory Results
05/12/24 05/12/24
06:55 16:00
WBC 8.1
Hgb 12.7
Hct 38.2
Plt Count 172
APTT 132.1 H Pending
Sodium 138
Potassium 4.2
Chloride 105
Carbon Dioxide 20 L
BUN 22 H
Creatinine 0.8
Glucose 122 H
Calcium 9.1
Vital Signs:
Vital Signs
Temp Pulse Resp BP Pulse Ox
98 F 67 18 135/68 95
05/12/24 12:39 05/12/24 12:39 05/12/24 12:39 05/12/24 12:39 05/12/24 12:39
Review of Systems
-
Respiratory: Reports No Symptoms
Cardiac: Reports No Symptoms
Abdomen/GI: Reports No Symptoms
Physical Exam
-
General: Comfortable
HEENT: Oxygen (2 L NC)
Respiratory: Clear to Auscultation
Cardiac: Regular Rhythm and S1/S2
GI: Soft, Nontender and Nondistended
Musculoskeletal: No Edema
Neuro: Awake, Alert and No Motor Deficits
Psych: Calm
--- NOTE | 2024-05-12 15:41 | PTCARENOTE ---
Received patient this am AAOX3. Heparin Drip infusing without difficulty. Pt complained of nausea this am. Dr. Pino made aware. Pt medicated with Zofran IV with relief. Pt off unit for Echo and Bilateral LE U/S. Tolerated diet well. Made patient
comfortable. Cont to assess patient status.
[2024-05-12] MEDS: HEPARIN 7500 UNITS IV (17:27)
[2024-05-12] MEDS: ELIQUIS 10 MG PO (20:28)
[2024-05-12] MEDS: TYLENOL 650 MG PO (21:19)
[2024-05-13 03:30] VITALS: BP 121/58
[2024-05-13 06:23] LABS: Hematocrit 37.7 % (37.0-47.0); Hemoglobin 12.3 g/dL (12.0-16.0); Mean Corp Hgb Conc. 32.6 g/dL (33.0-37.0); Mean Corpuscular Hgb 30.2 pg (27.0-31.0); Mean Corpuscular Volume 92.6 fL (81.0-99.0); Mean Platelet Volume 11.1 fL (7.4-10.4); Platelet Count 183 10^3/uL (130-400); Red Blood Cell Count 4.07 10^6/uL (4.20-5.40); Red Cell Dist. Width 12.5 % (11.5-14.5); White Blood Cell Count 5.7 10^3/uL (4.8-10.8)
[2024-05-13 06:52] LABS: Blood Urea Nitrogen 24 mg/dl (7-17); Calcium 9.5 mg/dl (8.4-10.2); Carbon Dioxide 23 mmol/L (22-30); Chloride 105 mmol/L (98-107); Estimated Creatinine Clearance 52 ml/min; Glucose 107 mg/dl (70-99); Potassium 4.4 mmol/L (3.5-5.1); Sodium 140 mmol/L (135-145); eGFR 57.31
[2024-05-13 07:15] VITALS: BP 140/65
[2024-05-13] MEDS: KEPPRA 1000 MG PO (08:51)
[2024-05-13] MEDS: PROCARDIA XL (EXTENDED RELEASE) 30 MG PO (08:51)
[2024-05-13] MEDS: ELIQUIS 10 MG PO (08:51)
[2024-05-13 11:00] VITALS: BP 122/63
[2024-05-13] MEDS: RISPERDAL 0.5 MG PO (11:07)
--- NOTE | 2024-05-13 12:22 | CM ---
Addendum entered by Monica Reynolds RN 05/15/24 10:41:
Received phone call message from patient's brother Celestino; left return message that patient may need more support at home and she declined VN, and that he would need to follow up with patient and her PCP for further support as he is already
discharged.
Addendum entered by Monica Reynolds RN 05/13/24 12:50:
IMM completed.
Original Note:
Patient with Hx Psychosis, stroke with Dx Bilateral PE, Left leg DVT. PT & OT 05/12 recommends skilled rehab. Seen by OT today; patient apparently dressed herself and was ambulating on her own in the room.
Nurse Geoff reporting concern about patient going home alone today as patient asked for help with upper body dressing.
Met with patient; offered SNF for short term rehab or VN for PT/OT; patient declined both stating she plans on going home today at 1pm, with friend transporting. Patient had odd affect and seemed to have difficulty processing information and
expressing her thoughts- she repeatedly said she had trouble understanding the conversation. Patient seemed defensive, flustered, somewhat upset about questions re; her living alone and caring for herself. Patient reported she has a friend who
assists her a few days a week as needed and she pays her -patient would not elaborate what assistance is provided, would not provide her contact information. Patient states she does not have any outpatient Psych support- she denies having an
outpatient therapist. Patient states she notified her brother of her d/c today. She agreed for CM to contact her brother.
Phone call to Rubio Leblanc, brother; left message requesting callback today for d/c today.
Case discussed with Dr Pino, nurse Tellez, PT Radha and OT Arlet.
Plan home today with friend transporting.
--- NOTE | 2024-05-13 13:21 | W.PN.HOSP.TC ---
Today's Communication/Plan
-
d/c home
Assessment / Plan
Assessment / Plan
CT chest PE
Pulmonary embolism involving the right lower, left upper, and left lower lobe segmental and subsegmental pulmonary arteries. Some of these filling defects are nonocclusive and may be more subacute to chronic in nature. There is no right heart strain.
Consolidation in the right lower lobe suspicious for developing infarction. Small right pleural effusion.
LE venous Doppler
Examination is positive for nonocclusive thrombus involving the left distal femoral, popliteal, peroneal, and posterior tibial veins, in this patient with pulmonary embolism.
No evidence for deep venous thrombosis of the right lower extremity.

1. Bilateral PE - submassive
Left leg DVT
Right lower lobe infarction
Small pleural effusion
-Patient have history of breast cancer with left-sided lumpectomy in the past, has been cancer free after that per patient.
-Denies previous history of blood clots/family history of any clotting disorder
-No recent travel/procedure. Patient walks 1 mile a day roughly.
-CT chest showing bilateral pulmonary embolism, images reviewed
-Lower extremity venous Doppler showing extensive thrombus involving left distal femoral/popliteal/peroneal posterior tibial vein
-CT chest also showing right lobe possible pulmonary infarction and small pleural effusion, patient have some pleuritic discomfort pain
-Troponin negative. Echocardiogram showed preseved EF , no signs of RV strain
-PESI score 109 class IV - high risk with 30 day mortality rate of 4-11.4%
-Patient currently on heparin drip, switched to Eliquis. Co-pay is acceptable
2. History of left-sided breast cancer
History of lumpectomy
History of breast radiation
-Has been cancer free after initial surgery few years back
-Primary oncologist has been retired, discussed possible need to follow-up with oncology in [place] although patient stated of unable to do so due to transportation issue.
3. History of seizures
-Maintained on Keppra home dose
4. Essential HTN
-continue on nifedipine
5. Nausea w/o vomiting
-Likely from morphine/oxycodone, discontinued
-Symptomatic care with Zofran
6. Generalized weakness
-PT recommended rehab although patient not interested
-Requiring minimal assistance from supine to sit and sit to stand with able to walk 10 feet with rolling walker, declined VN care as well
History of mood disorder
Pulmonary nodule
History of stroke
Vitamin D deficiency
DVT PPX - Eliquis
Full code
More than 30 minutes spent in discharge including
Final examination of the patient
Summarizing hospital stay
Instructions for continuing care to all relevant caregivers
Preparation of discharge records, prescriptions, and referral forms
Total time spent (in minutes): 40 mins
Anticipated Discharge: Today
Subjective/Interval History
-
Date of Service: May 13, 2024
Right-sided pain is better
No shortness of breath/chest pain
no abd pain/nausea/vomiting
Objective Data
-
Labs:
Laboratory Results
05/13/24
05:50
WBC 5.7
Hgb 12.3
Hct 37.7
Plt Count 183
Sodium 140
Potassium 4.4
Chloride 105
Carbon Dioxide 23
BUN 24 H
Creatinine 1.0
Glucose 107 H
Calcium 9.5
Vital Signs:
Vital Signs
Temp Pulse Resp BP Pulse Ox
97.6 F 67 16 122/63 94
05/13/24 11:00 05/13/24 11:00 05/13/24 11:00 05/13/24 11:00 05/13/24 11:00
I&O
05/12/24 05/13/24 05/14/24
06:59 06:59 06:59
Intake Total 780 / 780 240 / 240
Balance 780 / 780 240 / 240
Review of Systems
-
Respiratory: Reports No Symptoms
Cardiac: Reports No Symptoms
Abdomen/GI: Reports No Symptoms
Physical Exam
-
General: Comfortable
HEENT: Oxygen (2 L NC)
Respiratory: Clear to Auscultation
Cardiac: Regular Rhythm and S1/S2
GI: Soft, Nontender and Nondistended
Musculoskeletal: No Edema
Neuro: Awake, Alert and No Motor Deficits
Psych: Calm
--- NOTE | 2024-05-14 14:36 | W.DCSUMMARY ---
Discharge Summary
Discharge Data
Date of Admission: 05/11/24
Date of Discharge: 05/13/24
-
Pending Results: No
Hospital Course
Discharging Physician : Dr Boone Pino
Disposition : Home
Primary care physician : Dr Carito Barry
Principal Discharge diagnosis :
Bilateral pulmonary embolism
Right lower lobe pulmonary infarct
Right-sided pleurisy
Left lower extremity deep venous thrombosis
Chronic Discharge diagnosis :
History of left-sided breast cancer
History of lumpectomy and breast radiation
History of seizures
Essential hypertension
History of mood disorder
Pulmonary nodule
History of stroke
Vitamin D deficiency
Hospital Course :
Patient is a 78-year-old female with above-mentioned past medical history came to ER for having new onset right-sided chest pain which was aggravated on taking deep breath/cough. In ER patient had CT chest PE done which showed PE involving
bilateral pulmonary arteries, there was also possible pulmonary infarction and minimal effusion on right lung base. Patient symptoms was felt to be related to pleurisy from underlying PE. Lower extremity venous Doppler was done which also showed
an thrombus in left distal femoral-popliteal peroneal and posterior tibial vein. Patient was maintained on heparin drip. Echocardiogram did not show any signs of RV strain. Patient was vitally stable. Patient was transition to oral Eliquis
therapy after checking affordability from patient perspective. Patient advised to follow-up with pulmonology in office although patient have declined to do so as does not have any family support or anyone who can transport her to visit pulmonology.
Patient will follow-up with her primary care physician in office.
Patient also was evaluated by physical therapy and was deemed appropriate for rehab although patient declined to go to rehab.
Important imaging findings :
None
Procedure findings :
None
Discharge Plan
-
Patient Disposition: Home (Routine Discharge)
Discharge Diagnosis/Procedures: Bilateral PE, Left leg DVT
Condition: Fair
Diet: Regular
Activity: As tolerated
Driving Restrictions: As prior to admission
Bathing Restrictions: OK to Shower
Activity Restrictions/Additional Instructions:
Please use Tramadol/Ultram sparingly as could lower threshold for seizure.
Referrals:
Carito Barry, [Family Provider] - in one week
Prescriptions:
New
Eliquis 5 mg tablet
See Rx Instructions .ROUTE .COMPLEX Qty: 70 0RF
Rx Instructions:
Take 2 Tablet Twice daily for 6 more days THEN
Take 1 Tablet Twice daily after wards
1st month supply
Eliquis 5 mg tablet
5 mg PO BID Qty: 60 1RF
Rx Instructions:
2nd and 3rd month supply
acetaminophen [Tylenol Extra Strength] 500 mg tablet
1,000 mg PO Q8HPRN PRN (Reason: Pain) Qty: 30 0RF
tramadol 25 mg tablet
25 mg PO Q6H PRN (Reason: Pain) Qty: 10 0RF
Rx Instructions:
If pain not improved after taking tylenol
Continued
levetiracetam 500 MG tablet
1,000 mg PO DAILY
Patient Comments:
09/21/2023: Pt doesn't always take BID, but mostly takes in the am
nifedipine 30 mg Tablet Extended Release
30 mg PO DAILY 30 Days Qty: 30 0RF
Patient Comments:
09/21/2023: Pt unsure of name says its a 'really long name' medications on both Dr [facility] and [facility]
risperidone 0.5 mg Tablet
0.5 mg PO NOON
Held
aspirin 81 mg Tablet,Delayed Release (Dr/Ec)
81 mg PO DAILY
Hold Instructions: Resume on 07/23/24. Hold while on eliquis
Patient Comments:
per pt 'not for a few days'
Discharge Orders:
Discharge Patient (As Directed); Ordered 05/13/24
Ordered By: Boone Pino
Discharge Date and Time
Discharge Date/Time: 05/13/24 13:23
Print Language: LAO
== END 2024-05-13 13:23 | disposition home or self-care (01) | DRG 176 ==
LOC: 4 EAST ACU 17:38
PROVIDERS: Physician Assistant; ADMITTING PHYSICIAN Student in an Organized Health Care Education/Training Program; ATTENDING PHYSICIAN Hospitalist; EMERGENCY PHYSICIAN Emergency Medicine; FAMILY PHYSICIAN Family Medicine
DX: I26.94 Multiple subsegmental thrombotic pulmonary emboli without acute cor pulmonale (principal); I82.412 Acute embolism and thrombosis of left femoral vein; I82.432 Acute embolism and thrombosis of left popliteal vein; I82.452 Acute embolism and thrombosis of left peroneal vein; I82.442 Acute embolism and thrombosis of left tibial vein; I26.99 Other pulmonary embolism without acute cor pulmonale; Z66 Do not resuscitate; I10 Essential (primary) hypertension; E78.00 Pure hypercholesterolemia, unspecified; F39 Unspecified mood [affective] disorder; G40.909 Epilepsy, unspecified, not intractable, without status epilepticus; E55.9 Vitamin D deficiency, unspecified; I25.10 Atherosclerotic heart disease of native coronary artery without angina pectoris; Z87.891 Personal history of nicotine dependence; Z85.3 Personal history of malignant neoplasm of breast; Z79.82 Long term (current) use of aspirin; R09.1 Pleurisy; Z92.3 Personal history of irradiation; Z86.73 Personal history of transient ischemic attack (TIA), and cerebral infarction without residual deficits
CPT/HCPCS: 71101; 71275; 80048; 80053; 81003; 81015; 83690; 83735; 84484; 85025; 85027; 85379; 85730; 87086; 93005; 93306; 93970; 96374; 97163; 97167; 99285; Q9967

== ENCOUNTER 2025-04-07 18:51 | Emergency (ER) | payer OTHER, SELFPAY ==
[2025-04-07 18:53] VITALS: BP 184/99
[2025-04-07 19:14] LABS: Hematocrit 43.9 % (37.0-47.0); Hemoglobin 14.4 g/dL (12.0-16.0); Mean Corp Hgb Conc. 32.8 g/dL (33.0-37.0); Mean Corpuscular Volume 94.0 fL (81.0-99.0); Nucleated Red Blood Cells % 0 %; Platelet Count 202 10^3/uL (130-400); Red Cell Dist. Width 13.3 % (11.5-14.5)
[2025-04-07 19:33] LABS: ALT (SGPT) 20 U/L (0-35); AST (SGOT) 24 U/L (14-36); Albumin 5.0 g/dl (3.5-5.0); Alkaline Phosphatase 135 U/L (38-126); Blood Urea Nitrogen 30 mg/dl (7-17); Calcium 9.3 mg/dl (8.4-10.2); Carbon Dioxide 23 mmol/L (22-30); Chloride 108 mmol/L (98-107); Glucose 162 mg/dl (70-99); Potassium 4.9 mmol/L (3.5-5.1); Sodium 142 mmol/L (135-145); Total Protein 8.1 g/dl (6.3-8.2); eGFR 45.76
[2025-04-07 22:51] VITALS: BMI 35.1
[2025-04-07 22:53] VITALS: BP 160/81
--- NOTE | 2025-04-07 22:59 | EDRN ---
Pt developed lower back pain radiating around to abdomen sometimes around 1300. Pt urinated at 1700. Pt tried to urinate when she came back to ED room but was unable to get the urine in the cup. Pt did not take anything for pain 'because I don't
have anything at home for pain.' Nausea and 2 episodes of vomiting. No fever/chills/cough, cp, sob. This morning pt was out to breakfast and says she tried to urinate, felt she had to go, but only a few drops came out.
--- NOTE | 2025-04-08 00:30 | EDRN ---
Pt called to say she has gotten no relief with pyridium 'it's been at least 10 minutes.' Explained to patient it will not provide immediate relief. Pt asked if she can take more and was informed that is not necessary at this time. Dr Mayes
updated
[2025-04-08 01:20] VITALS: BP 152/74
--- NOTE | 2025-04-08 01:29 | ED.GENMED ---
History of Present Illness
<Mak Mayes, DO - Last Filed: 04/09/25 01:42>
General
Chief Complaint: Flank Pain
Source: patient and ambulance crew
Exam Limitations: none
Time Seen by Provider: 04/07/25 22:38
Nursing documentation reviewed up to this point in time: agreed with
History of Present Illness
History of Present Illness:
Note:
CHIEF COMPLAINT(S)
Bilateral flank pain and suprapubic tenderness.
HISTORY OF PRESENT ILLNESS
The patient is an 79-year-old female who presents with bilateral flank pain and suprapubic tenderness that began at 1:00 PM today. The patient is unable to provide a detailed medical history. She denies experiencing any fevers or chills. There was
an episode of nausea, but it was self-limited and did not involve vomiting.
PHYSICAL EXAM
General: Alert, no acute distress.
Skin: Warm, dry.
Head: Normocephalic, atraumatic.
Neck: Supple, trachea midline.
Eye, Ears, Nose, Mouth, and Throat: Oral mucosa moist.
Cardiovascular: Normal peripheral perfusion, No edema.
Respiratory: Respirations are non-labored.
Gastrointestinal: Abdomen nondistended
Back: Normal range of motion, Normal alignment.
Musculoskeletal: Normal range of motion, normal strength.
Neurological: Alert and oriented to person, place, time, and situation, No focal neurological deficit observed.
Psychiatric: Cooperative, appropriate mood & affect.
DIFFERENTIAL DIAGNOSIS
The Differential Diagnosis includes, in no particular order and is not limited to:
1. Urinary tract infection
2. Kidney stone
3. Pyelonephritis
4. Ovarian cyst
5. Pelvic inflammatory disease
6. Diverticulitis
7. Appendicitis
8. Hernia
9. Musculoskeletal pain
10. Gastrointestinal obstruction
CARE-UPDATE
04/08/25 - 01:30
CT scan reveals a 2mm stone in the left ureterovesical junction causing mild left hydronephrosis. No evidence of bowel obstruction or cholelithiasis. Appendix appears normal.
CARE-UPDATE
04/08/25 - 02:23
Patient reports improvement since portal administration. She notes continued alleviation of symptoms, although her menstrual cycle is still awaiting resumption after a year.
Disposition:
SUMMARY OF ENCOUNTER
An 79-year-old female presented with bilateral flank pain and suprapubic tenderness that started around 1:00 PM. The pain was intermittent, and she experienced some nausea without vomiting. A CT scan revealed a 2mm stone at the left ureterovesical
junction, causing mild left hydronephrosis. The patient received pain relief treatment and showed improvement.
DISPOSITION
Discharge
ASSESSMENT
Likely urolithiasis (kidney stone).
PLAN
Discharge home with appropriate pain management plan and instructions to monitor symptoms.
INDEPENDENT REVIEW OF LABS AND INTERPRETATION OF TESTS
My independent interpretation of the CT scan reveals a 2mm stone at the left ureterovesical junction causing mild left hydronephrosis. No evidence of bowel obstruction or cholelithiasis was present.
PATIENT EDUCATION AND COUNSELING
Educated the patient on kidney stones, including monitoring symptoms and when to seek further medical care.
FOLLOW-UP INSTRUCTIONS
Advise follow-up with a primary care physician or urologist for further management and evaluation.
MEDICATION RECONCILIATION
Pain medication provided for symptom management during ED visit; specific prescription not mentioned.
MEDICAL DECISION MAKING
1. Number and Complexity of Problems Addressed: Chronic conditions affecting care include potential urolithiasis. Differential diagnosis considered: Urinary tract infection, pyelonephritis, urolithiasis, ovarian cyst, pelvic inflammatory disease,
diverticulitis, appendicitis, hernia, musculoskeletal pain, gastrointestinal obstruction.
2. Data:
- Category 1:
- CT scan independently interpreted, revealing a 2mm stone at the left ureterovesical junction causing mild left hydronephrosis.
3. Risk: Consideration of Admission/Observation: Escalation of care including admission/observation was considered given the complexity and risk of the patients presenting complaint, exam findings, and/or their underlying comorbidities. However,
ultimately the patient is safe for outpatient management with close follow-up. Reasoning: Work-up reassuring, does not reveal any acute life/organ threatening processes, patients symptoms well controlled upon reevaluation, reexamination is
reassuring, vitals are stable, patient agreeable with discharge, and reliable for follow-up.
DIAGNOSIS
- Urolithiasis (N20.0)
Past History
<Mak Mayes DO - Last Filed: 04/09/25 01:42>
Past History
ED Past Medical History: Cancer, CVA, HTN, Hypercholesterolemia and Psychiatric
ED Past Surgical History: Other (Mastectomy)
PSI?: No
Social History
Tobacco: Non-smoker
Alcohol: None
Drug: None
Personal: Single
Living: alone
Employment: Retired
Family History
Family History: Unable to obtain
Phy Exam
<Mak Mayes DO - Last Filed: 04/09/25 01:42>
Physical Exam
Physical Exam:
.
Course
<Mak Mayes DO - Last Filed: 04/09/25 01:42>
Orders/Labs/Results
Orders:
Orders
04/07/25 19:04
Complete Blood Count/With Diff Urgent
Comprehensive Metabolic Panel Urgent
04/08/25 00:00
CT Abd/pel Without Iv Or Oral Urgent
Comment:
Reason For Exam: flank pain
Phenazopyridine HCl [Pyridium] 100 mg PO NOW STA
04/08/25 01:43
Ketorolac [Toradol] 15 mg IM NOW STA
04/08/25 02:34
Urinalysis Reflex To Culture Urgent
Date Specimen was Collected: 04/08/25
Time Specimen was Collected: 02:32
Urine Microscopic Reflex Cult Urgent
Urine Culture Urgent
ADRIAN Source: U
Specimen Description:
Date Specimen was Collected: 04/08/25
Time Specimen was Collected: 02:32
04/08/25 04:32
Fosfomycin [Monurol] 3 gm PO ONCE ONE
Abnormal Lab Results
04/07/25 04/08/25
19:04 02:34
WBC 15.2 H 10^3/uL
(4.8-10.8)
MCHC 32.8 L g/dL
(33.0-37.0)
MPV 10.5 H fL
(7.4-10.4)
Abs Immat Gran (auto) 0.1 H 10^3/uL
(0-0.05)
Absolute Neuts (auto) 13.7 H 10^3/uL
(1.4-6.5)
Absolute Lymphs (auto) 0.7 L 10^3/uL
(1.2-3.4)
Absolute Monos (auto) 0.7 H 10^3/uL
(0.1-0.6)
Neutrophils % 89.9 H %
(42.2-75.2)
Lymphocytes % 4.6 L %
(20.5-51.1)
Chloride 108 H mmol/L
(98-107)
BUN 30 H mg/dl
(7-17)
Creatinine 1.2 H mg/dL
(0.6-1.0)
Glucose 162 H mg/dl
(70-99)
Alkaline Phosphatase 135 H U/L
(38-126)
Ur Occult Blood Reflex 1+ A
(Negative)
Leukocyte Esterase Rfl 2+ A
(Negative)
Urine RBC 3-6 A /HPF
(0-2)
Urine WBC (Reflex) 11-15 A /HPF
(0-5)
Urine Bacteria (Reflex) Many A
(Negative)
Urine Albumin (Reflex) 3+ A
(Neg - Trace)
04/07/25 19:04
04/07/25 19:04
Vital Signs
Initial and Last Documented VS:
Initial Vital Signs
Temp Pulse Resp BP Pulse Ox
99 F 104 20 184/99 98
04/07/25 18:53 04/07/25 18:53 04/07/25 18:53 04/07/25 18:53 04/07/25 18:53
Last Documented Vital Signs
Temp Pulse Resp BP Pulse Ox
98 F 85 14 128/77 97
04/08/25 04:45 04/08/25 04:45 04/08/25 04:45 04/08/25 04:45 04/08/25 04:45
<Kaitlin Lopez, DO - Last Filed: 04/08/25 04:38>
Orders/Labs/Results
Orders:
Orders
04/07/25 19:04
Complete Blood Count/With Diff Urgent
Comprehensive Metabolic Panel Urgent
04/08/25 00:00
CT Abd/pel Without Iv Or Oral Urgent
Comment:
Reason For Exam: flank pain
Phenazopyridine HCl [Pyridium] 100 mg PO NOW STA
04/08/25 01:43
Ketorolac [Toradol] 15 mg IM NOW STA
04/08/25 02:34
Urinalysis Reflex To Culture Urgent
Date Specimen was Collected: 04/08/25
Time Specimen was Collected: 02:32
Urine Microscopic Reflex Cult Urgent
Urine Culture Urgent
ADRIAN Source: U
Specimen Description:
Date Specimen was Collected: 04/08/25
Time Specimen was Collected: 02:32
04/08/25 04:32
Fosfomycin [Monurol] 3 gm PO ONCE ONE
Abnormal Lab Results
04/07/25 04/08/25
19:04 02:34
WBC 15.2 H 10^3/uL
(4.8-10.8)
MCHC 32.8 L g/dL
(33.0-37.0)
MPV 10.5 H fL
(7.4-10.4)
Abs Immat Gran (auto) 0.1 H 10^3/uL
(0-0.05)
Absolute Neuts (auto) 13.7 H 10^3/uL
(1.4-6.5)
Absolute Lymphs (auto) 0.7 L 10^3/uL
(1.2-3.4)
Absolute Monos (auto) 0.7 H 10^3/uL
(0.1-0.6)
Neutrophils % 89.9 H %
(42.2-75.2)
Lymphocytes % 4.6 L %
(20.5-51.1)
Chloride 108 H mmol/L
(98-107)
BUN 30 H mg/dl
(7-17)
Creatinine 1.2 H mg/dL
(0.6-1.0)
Glucose 162 H mg/dl
(70-99)
Alkaline Phosphatase 135 H U/L
(38-126)
Ur Occult Blood Reflex 1+ A
(Negative)
Leukocyte Esterase Rfl 2+ A
(Negative)
Urine RBC 3-6 A /HPF
(0-2)
Urine WBC (Reflex) 11-15 A /HPF
(0-5)
Urine Bacteria (Reflex) Many A
(Negative)
Urine Albumin (Reflex) 3+ A
(Neg - Trace)
04/07/25 19:04
04/07/25 19:04
Vital Signs
Initial and Last Documented VS:
Initial Vital Signs
Temp Pulse Resp BP Pulse Ox
99 F 104 20 184/99 98
04/07/25 18:53 04/07/25 18:53 04/07/25 18:53 04/07/25 18:53 04/07/25 18:53
Last Documented Vital Signs
Temp Pulse Resp BP Pulse Ox
98 F 85 14 128/77 97
04/08/25 04:45 04/08/25 04:45 04/08/25 04:45 04/08/25 04:45 04/08/25 04:45
<Mak Mayes DO - Last Filed: 04/09/25 01:42>
*Pulse Oximetry
SaO2: 98
Oxygen Mode of Delivery: Room air
Patient hypoxic: no
*Critical Care Note
Total Time (30-74mins, 75-104mins- exclusive of procedures): Not Applicable
<Mak Mayes DO - Last Filed: 04/09/25 01:42>
Update Note
Update Note:
NAME: MALORIE SNELL
DATE OF EXAM: 04/08/2025
Patient No: [id number]
Physician: JAYA^LES
Date of : 1945
Past Medical History (entered by Technologist):
Reason For Exam (entered by Technologist):
Other Notes (entered by Technologist): Patient with c/o left sided flank pain that radiates into her abdomen. Has difficulty urinating.
Prior sent
Additional Information (per [facility] Radiologist):
CT ABDOMEN/PELVIS wo CONTRAST
IMPRESSION:
1. 2 mm stone at the left UVJ resulting in mild left hydronephrosis
2. No bowel obstruction. Cholelithiasis. Normal appendix.
Incidentals:
- Diverticulosis without evidence of diverticulitis
- No hepatic or pancreatic mass. Small hiatal hernia. Distal esophageal wall thickening.
- No abdominal aortic aneurysm.
- No acute osseous abnormality.
- No acute abnormality within the visualized lungs.
- No acute abnormality within the visualized soft tissues.
Case finalized on Apr 08 2025 1:14AM ET
Tyler Long M.D.
This report has been electronically signed and verified by the Radiologist whose name is printed above.
<Kaitlin Lopez, DO - Last Filed: 04/08/25 04:38>
Update Note
Update Note:
NAME: MALORIE SNELL
DATE OF EXAM: 04/08/2025
Patient No: [id number]
Physician: ALEYDA^Edd
Date of : 1945
Past Medical History (entered by Technologist):
Reason For Exam (entered by Technologist):
Other Notes (entered by Technologist): Patient with c/o left sided flank pain that radiates into her abdomen. Has difficulty urinating.
Prior sent
Additional Information (per [facility]):
CT ABDOMEN/PELVIS wo CONTRAST
IMPRESSION:
1. 2 mm stone at the left UVJ resulting in mild left hydronephrosis
2. No bowel obstruction. Cholelithiasis. Normal appendix.
Incidentals:
- Diverticulosis without evidence of diverticulitis
- No hepatic or pancreatic mass. Small hiatal hernia. Distal esophageal wall thickening.
- No abdominal aortic aneurysm.
- No acute osseous abnormality.
- No acute abnormality within the visualized lungs.
- No acute abnormality within the visualized soft tissues.
Case finalized on Apr 08 2025 1:14AM ET
Tyler Long M.D.
This report has been electronically signed and verified by the Radiologist whose name is printed above.
04:30
Patient continues to sleep soundly. Denies pain. No further nausea or vomiting.
Urinalysis appears to be a contaminated specimen.
Multiple previous urine cultures reviewed, all contaminated specimens.
Will give a one-time dose of Monurol for potential UTI and await urine culture.
Will discharge to home as planned above.
Return precautions discussed.
ED Attending Note
<Mak Mayes DO - Last Filed: 04/09/25 01:42>
-
Portions of this chart may have been created with voice recognition software.� Occasional wrong word or��sound alike� substitutions may have occurred due to the inherent limitations of voice recognition software.
Discharge Plan
Departure
Patient Disposition: Home (Routine Discharge)
Date of Disposition: 04/08/25
Time of Disposition: 04:34
Patient with high blood pressure during this ER visit?: Yes
Condition: Good
Discharge Problem:
Kidney stone, Acute flank pain
Instructions: Kidney Stones (DC), How to Strain Your Urine
Prescriptions:
New
tamsulosin [Flomax] 0.4 mg capsule
0.4 mg PO DAILY Qty: 7 0RF
acetaminophen-codeine 300-15 mg Tablet
1 tab PO Q4HPRN PRN (Reason: pain) Qty: 7 0RF
diclofenac sodium 75 mg tablet,delayed release (DR/EC)
75 mg PO BID Qty: 10 0RF
No Action
levetiracetam 500 MG tablet
500 mg PO Q12H
nifedipine 30 mg Tablet Extended Release
30 mg PO DAILY 30 Days Qty: 30 0RF
risperidone 0.5 mg Tablet
0.5 mg PO HS
Referrals:
Kenneth Ly MD [Active, Urology] - Call in 1-3 days for appt
Carito Barry DO [Family Provider, Family Practice]
Activity Restrictions/Additional Instructions:
Thank You for choosing [facility].
It was a pleasure meeting you and taking part in your care. We hope for your continued healing and wellness.
Please read discharge instructions in their entirety. However, they are for general education and may not describe your exact diagnosis at discharge. Information on your ER visit and medical conditions were discussed with you along with appropriate
follow up information...
If indicated, please take your medications as instructed and indicated on discharge paperwork.
Please schedule a follow up appointment as directed. Call to schedule an appointment
Please return to the emergency department with ANY change in, persisting, or worsening of symptoms. If any of your symptoms do not improve, or persist, or become more severe within 6-12 hours, please return to the emergency department for further
care.
Please return to the emergency department if you develop a headache, neck pain/stiffness, fever greater than 100.4F, chest pain, shortness of breath, persistent nausea, vomiting, slurred speech, difficulty walking, numbness/tingling, weakness, signs
of infection or any other symptoms that are worrisome to you.
If you have any questions or concerns please do not hesitate to call the Hospital at
Interventions
Interventions:
*Risk Screen - Suicide Last Done: 04/07/25 18:53
*General Assessment Last Done: 04/07/25 18:53
*Neglect/Abuse Screening Last Done: 04/07/25 18:53
*ED- Fall Risk Assessment Last Done: 04/07/25 22:53
*Nursing Disposition Last Done: 04/08/25 05:12
ZQ-Lcqcyo-Uxhcunhgil Assessment Last Done: 04/07/25 23:07
ED-Female Genitourinary Assessment Last Done: 04/07/25 23:07
Discharge Date and Time
Discharge Date/Time: 04/08/25 05:12
Print Language: SLOVENIAN
--- NOTE | 2025-04-08 01:37 | EDRN ---
Pt dozing when this RN entered room. Pt says her pain is no better and she is unable to provide a urine specimen. Pt informed Dr Mayes needs a urine specimen from her. Pt asked that the one she provided 'earlier' be used. Pt was referring to
a specimen provided on a different day/visit. Explained that physician wants a urine from this ED visit. Pt has not been drinking her lincoln tootie or water. Pt strongly encouraged to drink so she can provide a urine specimen.
[2025-04-08] MEDS: TORADOL 15 MG IM (01:48)
--- NOTE | 2025-04-08 02:23 | EDRN ---
Pt walked out of room into hallway and asked that someone tie the back of her gown. Gown tied. Gait steady. Pt says her pain has improved. Pt into bathroom to attempt to provide urine specimen
[2025-04-08 03:14] LABS: Urine Character Mucous (Clear)
[2025-04-08 03:26] LABS: Urine Squamous Cell >30 /LPF (Few)
[2025-04-08 03:55] VITALS: BP 134/72
[2025-04-08 04:45] VITALS: BP 128/77
[2025-04-08] MEDS: MONUROL 3 GM PO (04:45)
--- NOTE | 2025-04-08 04:55 | EDRN ---
Woke pt to give her monurol and discharge instructions. Pt getting dressed. Pt does not want to call for her ride yet, will do so later.
== END 2025-04-08 05:12 | disposition home or self-care (01) ==
LOC: EMR 18:51
PROVIDERS: Emergency Medicine; EMERGENCY PHYSICIAN Student in an Organized Health Care Education/Training Program; FAMILY PHYSICIAN Family Medicine
DX: N13.2 Hydronephrosis with renal and ureteral calculous obstruction (principal); I10 Essential (primary) hypertension; E78.00 Pure hypercholesterolemia, unspecified; Z86.73 Personal history of transient ischemic attack (TIA), and cerebral infarction without residual deficits
CPT/HCPCS: 99284; 96372; 74176; 80053; 81003; 81015; 85025; 87086

== ENCOUNTER 2025-04-26 14:19 | Emergency (ER) | payer OTHER, SELFPAY ==
[2025-04-26] VITALS (14 sets, daily range): BP systolic 140–184; BP diastolic 63–103; BMI 36.7
[2025-04-26] MEDS: ZOFRAN 4 MG IV (14:48)
[2025-04-26 15:12] LABS: Hematocrit 37.8 % (37.0-47.0); Hemoglobin 12.6 g/dL (12.0-16.0); Mean Corp Hgb Conc. 33.3 g/dL (33.0-37.0); Mean Corpuscular Volume 92.9 fL (81.0-99.0); Nucleated Red Blood Cells % 0 %; Platelet Count 166 10^3/uL (130-400); Red Cell Dist. Width 13.4 % (11.5-14.5)
--- NOTE | 2025-04-26 15:15 | ED.GENMED ---
History of Present Illness
General
Chief Complaint: Seizure
Source: patient and other (RN)
Exam Limitations: none
Time Seen by Provider: 04/26/25 14:25
History of Present Illness
History of Present Illness:
This patient is an 79-year-old female presents emergency department after having a witnessed seizure lasting approximately 3 minutes. Patient arrives postictal with nausea and 1 episode of vomiting. She is complaining of nausea here but denies
headache, chest pain, shortness of breath, abdominal pain, neck pain. She has dried blood noted at the right side of her mouth and an accompanying tongue injury there.
Past History
Past History
ED Past Medical History: Cancer, CVA, HTN, Hypercholesterolemia, Seizures and Psychiatric
ED Past Surgical History: Other (Mastectomy)
PSI?: No
Social History
Tobacco: Non-smoker
Alcohol: None
Drug: None
Personal: Single
Living: alone
Employment: Retired
Family History
Family History: Unable to obtain
Phy Exam
Physical Exam
Physical Exam:
GENERAL: Alert , in no apparent distress
EYE: pupils equal and reactive
NECK: Supple, no significant adenopathy.
ENT: o/p clr, mmm, right lateral tongue abrasion noted.
CARDIAC: Regular rate and rhythm .
LUNGS: Clear breath sounds bilaterally, no acute respiratory distress, no wheezes/rales/rhonchi
ABDOMEN: Soft, without focal tenderness, no r/g
NEUROLOGICAL: Alert and oriented, nonfocal
SKIN: Warm and dry, skin intact.
MUSCULOSKELETAL: No edema, well perfused.
PSYCH: Is upset, moaning from time to time with reported nausea
Course
Orders/Labs/Results
Orders:
Orders
04/26/25 14:30
Electrocardiogram (*1) Stat
Comment: ALREADY DONE
04/26/25 14:34
Ondansetron Injectable [Zofran] 4 mg IV NOW STA
04/26/25 14:48
Basic Metabolic Panel Urgent
04/26/25 15:00
Complete Blood Count/With Diff Urgent
04/26/25 15:24
Troponin I Urgent
04/26/25 15:45
Gujxp-Plws-Kfjvaer Urgent
Potassium Urgent
04/26/25 15:51
CT Head W/o Iv Contrast Urgent
Comment:
Reason For Exam: SZ,N, V, DIZZY
Abnormal Lab Results
04/26/25 04/26/25
14:48 15:00
WBC 11.8 H 10^3/uL
(4.8-10.8)
RBC 4.07 L 10^6/uL
(4.20-5.40)
MPV 11.0 H fL
(7.4-10.4)
Abs Immat Gran (auto) 0.1 H 10^3/uL
(0-0.05)
Absolute Neuts (auto) 11.0 H 10^3/uL
(1.4-6.5)
Absolute Lymphs (auto) 0.4 L 10^3/uL
(1.2-3.4)
Immature Gran % 0.8 H %
(0-0.5)
Neutrophils % 93.2 H %
(42.2-75.2)
Lymphocytes % 3.1 L %
(20.5-51.1)
Chloride 112 H mmol/L
(98-107)
Carbon Dioxide 15 L mmol/L
(22-30)
BUN 27 H mg/dl
(7-17)
Glucose 175 H mg/dl
(70-99)
04/26/25 15:00
04/26/25 15:45
Vital Signs
Initial and Last Documented VS:
Initial Vital Signs
Temp Pulse Resp BP Pulse Ox
98.5 F 93 16 169/78 99
04/26/25 14:23 04/26/25 14:23 04/26/25 14:23 04/26/25 14:23 04/26/25 14:23
Last Documented Vital Signs
Temp Pulse Resp BP Pulse Ox
98.2 F 62 16 155/69 99
04/26/25 20:00 04/26/25 20:15 04/26/25 20:00 04/26/25 20:00 04/26/25 20:00
*Pulse Oximetry
SaO2: 99
Oxygen Mode of Delivery: Room air
Update Note
Update Note:
Patient presents to the Emergency Department with reported seizure
Number and Complexity of Problems Addressed at the Encounter
� Chronic conditions affecting care:
� Acute Exacerbation and/or Progression of Chronic Illness:
� Differential Diagnosis includes: But not limited to medication noncompliance, medication resistant seizure, electrolyte disorder, etc. etc.
Amount and/or Complexity of Data to be Reviewed and Analyzed
� I performed an independent evaluation of and my interpretation is:
EKG: Read by me, normal sinus rhythm, normal rate, normal axis, no acute ischemia
CT: Read by radiology, head NAD
Xrays:
Laboratory Studies: Mild leukocytosis may be reactive given seizure, acidosis noted likely related to seizure, mild prerenal azotemia. Trope within normal limits
Other:
� Review of other/old records reveals: Patient was admitted to the hospital August 2023 after having a seizure and developing rhabdo. Her Keppra dose was at that time. She also was seen April 08 and diagnosed with a kidney
stone. Patient denies any related symptoms at this time such as flank pain, hematuria, abdominal pain, etc.
� Clinical information was obtained by an independent historian:
� Prescriptions/Medications Considered but not given:
� Further testing considered but not performed:
Risk of Complications and/or Morbidity or Mortality of Patient Management
� Social determinants of health affecting care:
� Discussion with other providers (PCP, Hospitalists, Consultants, etc):
� Escalation of care including admission/observation vs risk of discharge considered: 3:50 PM repeat assessment, patient more lucid here. Vital signs stable. Her nausea is improved but she continues to complain of less nausea.
She now describes this morning waking up and feeling nauseous and dizzy. Her brother came to visit, and that is when she had what her brother describes as a seizure lasting approximately 3 minutes. Patient obviously does not have memory of this.
She denies chest pain, shortness of breath, headache. She is not currently dizzy. She denies a sensation of spinning or movement, when describing the dizziness. She denies numbness, tingling, double vision, focal weakness, trouble swallowing.
She says she feels a little 'sore' in the lower abdomen when asked about abdominal pain.
Multiple reassessments here 8:30 PM patient feels much better, has had several drinks of lincoln tootie, ambulated to the bathroom without difficulty, and is without complaints. Multiple reassessments of abdomen, no abdominal tenderness to palpation
noted, no nausea, no vomiting, patient eager to go home and is at baseline. Discussed with patient importance of follow-up and reasons to return to the ER.
ED Attending Note
-
Portions of this chart may have been created with voice recognition software.� Occasional wrong word or��sound alike� substitutions may have occurred due to the inherent limitations of voice recognition software.
Discharge Plan
Departure
Patient Disposition: Home (Routine Discharge)
Date of Disposition: 04/26/25
Time of Disposition: 20:26
Patient with high blood pressure during this ER visit?: Yes
Condition: Good
Discharge Problem:
Seizure
Instructions: BLOOD PRESSURE, Seizures, Adult (DC)
Prescriptions:
No Action
levetiracetam 500 MG tablet
500 mg PO Q12H
nifedipine 30 mg Tablet Extended Release
30 mg PO DAILY 30 Days Qty: 30 0RF
risperidone 0.5 mg Tablet
0.5 mg PO HS
tamsulosin [Flomax] 0.4 mg capsule
0.4 mg PO DAILY Qty: 7 0RF
acetaminophen-codeine 300-15 mg Tablet
1 tab PO Q4HPRN PRN (Reason: pain) Qty: 7 0RF
diclofenac sodium 75 mg tablet,delayed release (DR/EC)
75 mg PO BID Qty: 10 0RF
Referrals:
Darvin Banda MD [Family Provider, Family Practice] - Tomorrow
Activity Restrictions/Additional Instructions:
PLEASE SEE YOUR DOCTOR IN CLOSE FOLLOW UP,CONTACT HIM/HER TOMORROW. IF YOU DEVELOP DIZZINESS, CHEST PAIN, TROUBLE BREATHING, REPEATED VOMITING, ABDOMINAL PAIN, FEVER, SEVERE HEADACHE, OR OTHER WORRISOME SIGNS, GO TO THE ER IMMEDIATELY!
Interventions
Interventions:
*Risk Screen - Suicide Last Done: 04/26/25 14:23
*General Assessment Last Done: 04/26/25 14:23
*Neglect/Abuse Screening Last Done: 04/26/25 14:23
*ED- Fall Risk Assessment Last Done: 04/26/25 14:23
ED- Cardiac Assessment Last Done: 04/26/25 15:21
ED- Neurological Assessment Last Done: 04/26/25 15:21
ED- Pulmonary Assessment Last Done: 04/26/25 15:21
Discharge Date and Time
Print Language: POLISH
[2025-04-26 15:29] LABS: Blood Urea Nitrogen 27 mg/dl (7-17); Calcium 9.0 mg/dl (8.4-10.2); Carbon Dioxide 15 mmol/L (22-30); Chloride 112 mmol/L (98-107); Estimated Creatinine Clearance 68 ml/min; Glucose 175 mg/dl (70-99); Sodium 139 mmol/L (135-145); eGFR > 60.00
[2025-04-26 16:21] LABS: ALT (SGPT) 11 U/L (0-35); AST (SGOT) 20 U/L (14-36); Albumin 4.0 g/dl (3.5-5.0); Alkaline Phosphatase 77 U/L (38-126); Potassium 3.8 mmol/L (3.5-5.1); Total Protein 6.6 g/dl (6.3-8.2)
[2025-04-26 16:47] LABS: Troponin I < 0.012 ng/ml
== END 2025-04-26 22:05 | disposition home or self-care (01) ==
LOC: EMR 14:19
PROVIDERS: EMERGENCY PHYSICIAN Emergency Medicine; FAMILY PHYSICIAN Student in an Organized Health Care Education/Training Program
DX: R56.9 Unspecified convulsions (principal); I10 Essential (primary) hypertension; E78.00 Pure hypercholesterolemia, unspecified; Z86.73 Personal history of transient ischemic attack (TIA), and cerebral infarction without residual deficits
CPT/HCPCS: 99284; 96374; 70450; 80048; 80076; 84132; 84484; 85025; 93005

== ENCOUNTER 2025-04-29 17:12 | Emergency (ER) | payer OTHER, SELFPAY ==
[2025-04-29 17:13] VITALS: BP 164/103
--- NOTE | 2025-04-29 18:43 | ED.GENMED ---
History of Present Illness
General
Chief Complaint: Fall
Source: patient and ambulance crew
Exam Limitations: none
Time Seen by Provider: 04/29/25 18:01
Nursing documentation reviewed up to this point in time: agreed with
History of Present Illness
History of Present Illness:
Note:
CHIEF COMPLAINT(S)
- Lower back pain.
HISTORY OF PRESENT ILLNESS
The patient is an 79-year-old female who reports experiencing lower back pain. The onset of pain appears linked to an incident of falling.
PHYSICAL EXAM
General: Alert, no acute distress.
Skin: Warm, dry.
Head: Normocephalic, atraumatic.
Neck: Supple, trachea midline.
Eye Ears, nose, mouth and throat: Oral mucosa moist.
Cardiovascular: Normal peripheral perfusion, No edema.
Respiratory: Respirations are non-labored.
Gastrointestinal: Abdomen nondistended.
Back: Normal range of motion, Normal alignment.
Musculoskeletal: Normal ROM, normal strength.
Neurological: Alert and oriented to person, place, time, and situation, No focal neurological deficit observed.
Psychiatric: Cooperative, appropriate mood & affect.
PLAN
- Review test reports for further assessment and management of lower back pain.
DIFFERENTIAL DIAGNOSIS
The Differential Diagnosis includes, in no particular order and is not limited to:
1. Lumbar sprain or strain
2. Vertebral compression fracture
3. Osteoporosis-related fracture
4. Degenerative disc disease
5. Sciatica
6. Spinal stenosis
7. Soft tissue injury
8. Sacroiliac joint dysfunction
9. Radiculopathy
10. Ankylosing spondylitis
CARE-UPDATE
04/29/25 - 19:47
Patient exhibits no acute fractures or cranial hemorrhage. Imaging confirms absence of lumbar or cervical spine fractures and no additional injury or illness identified. Condition stable, cleared for discharge to [facility]. Recommended follow-up
with primary care for routine assessment.
Disposition:
SUMMARY OF ENCOUNTER
The patient, an 79-year-old female, presented to the emergency department with a complaint of lower back pain following a fall. During the examination, no acute fractures or cranial hemorrhage were found. Imaging studies confirmed the absence of
lumbar or cervical spine fractures. The patients condition was stable, and she was subsequently evaluated for potential discharge. Her lower back pain was assessed as likely due to a lumbar strain post-fall.
DISPOSITION
Discharge home.
ASSESSMENT
The patient is diagnosed with lumbar strain following a fall.
PLAN
The patient has been cleared for discharge to a [facility]. Recommended follow-up with primary care for routine assessment and further management of the lower back pain.
INDEPENDENT REVIEW OF LABS AND INTERPRETATION OF TESTS
My independent interpretation of imaging confirms the absence of lumbar or cervical spine fractures and no intracranial hemorrhage.
MEDICAL DECISION MAKING
-Complexity of Data Reviewed: Chronic conditions affecting care include potential lumbar strain from fall, considering:
1. Lumbar sprain or strain
2. Vertebral compression fracture
3. Osteoporosis-related fracture
4. Degenerative disc disease
5. Sciatica
6. Spinal stenosis
7. Soft tissue injury
8. Sacroiliac joint dysfunction
9. Radiculopathy
10. Ankylosing spondylitis
-Data:
Category 1
My independent interpretation of imaging confirmed no acute fractures or intracranial injuries.
-Risk:
Consideration of Admission/Observation: Escalation of care including admission/observation was considered given the complexity and risk of the patients presenting complaint, exam findings, and her underlying comorbidities. However, ultimately I feel
the patient is safe for outpatient management with close follow-up. Reasoning: Work-up reassuring, does not reveal any acute life/organ-threatening processes, patients symptoms well controlled upon reevaluation, reexamination is reassuring, vitals
are stable, patient agreeable with discharge, reliable for follow-up.
DIAGNOSIS
1. Lumbar strain (ICD-10: S39.012A)
2. Fall
3. Cervical strain
Past History
Past History
ED Past Medical History: Cancer, CVA, HTN, Hypercholesterolemia, Seizures and Psychiatric
ED Past Surgical History: Other (Mastectomy)
PSI?: No
Social History
Tobacco: Non-smoker
Alcohol: None
Drug: None
Personal: Single
Living: alone
Employment: Retired
Family History
Family History: Unable to obtain
Phy Exam
Physical Exam
Physical Exam:
.
Course
Orders/Labs/Results
Orders:
Orders
04/29/25 17:[address] [CT Head W/o Iv Contrast] Stat
Comment:
Reason For Exam: fall with head strike
04/29/25 18:42
CT Cervical Spine W/o Iv Contr Urgent
Comment:
Reason For Exam: fall, neck pain
Lumbar Spine Complete, 4 View [CR Lumbar Spine Comp Min 4 Vw*] Urgent
Comment:
Reason For Exam: fall, low back pain
Vital Signs
Initial and Last Documented VS:
Initial Vital Signs
Temp Pulse Resp BP Pulse Ox
98.1 F 86 18 164/103 96
04/29/25 17:13 04/29/25 17:13 04/29/25 17:13 04/29/25 17:13 04/29/25 17:13
Last Documented Vital Signs
Temp Pulse Resp BP Pulse Ox
98.1 F 83 20 161/78 96
04/29/25 17:13 04/29/25 19:49 04/29/25 18:54 04/29/25 19:49 04/29/25 18:54
*Pulse Oximetry
SaO2: 96
Oxygen Mode of Delivery: Room air
Patient hypoxic: no
*Critical Care Note
Total Time (30-74mins, 75-104mins- exclusive of procedures): Not Applicable
ED Attending Note
-
Portions of this chart may have been created with voice recognition software.� Occasional wrong word or��sound alike� substitutions may have occurred due to the inherent limitations of voice recognition software.
Discharge Plan
Departure
Patient Disposition: Home (Routine Discharge)
Date of Disposition: 04/29/25
Time of Disposition: 19:57
Patient with high blood pressure during this ER visit?: Yes
Condition: Good
Discharge Problem:
Fall, Lumbar strain, Cervical strain
Instructions: Low Back Pain (DC), Preventing falls in adults
Prescriptions:
No Action
levetiracetam 500 MG tablet
500 mg PO Q12H
nifedipine 30 mg Tablet Extended Release
30 mg PO DAILY 30 Days Qty: 30 0RF
risperidone 0.5 mg Tablet
0.5 mg PO HS
Referrals:
Yong Baugh MD [Family Provider, Family Practice]
Interventions
Interventions:
*Risk Screen - Suicide Last Done: 04/29/25 17:13
*General Assessment Last Done: 04/29/25 17:13
*Neglect/Abuse Screening Last Done: 04/29/25 17:13
*ED- Fall Risk Assessment Last Done: 04/29/25 18:54
*ED COVID-19 Vaccine History Last Done: 04/29/25 18:54
*Nursing Disposition Last Done: 04/29/25 20:44
ED-Musculoskeletal Assessment Last Done: 04/29/25 19:57
ED- Neurological Assessment Last Done: 04/29/25 19:57
ED-Skin Assessment Last Done: 04/29/25 19:57
Discharge Date and Time
Discharge Date/Time: 04/29/25 20:44
Print Language: UKRAINIAN
[2025-04-29 18:54] VITALS: BP 156/93; BMI 34.9
--- NOTE | 2025-04-29 19:00 | EDRN ---
Received patient on stretcher. Patient stated that she has no recollection of what happened or how/where she fell. Patient gets angry when asked what happened today. Patient remembers that she did not eat breakfast or lunch today. Able to answer
correctly date/time and place. Patient with c/o lower back,neck and pain in the back of both her legs when she stands. +dizziness. Denies headache.
[2025-04-29 19:49] VITALS: BP 161/78
== END 2025-04-29 20:44 | disposition home or self-care (01) ==
LOC: EMR 17:12
PROVIDERS: EMERGENCY PHYSICIAN Emergency Medicine; FAMILY PHYSICIAN Family Medicine
DX: S16.1XXA Strain of muscle, fascia and tendon at neck level, initial encounter (principal); S39.012A Strain of muscle, fascia and tendon of lower back, initial encounter; W19.XXXA Unspecified fall, initial encounter; E78.00 Pure hypercholesterolemia, unspecified; I10 Essential (primary) hypertension; Z86.73 Personal history of transient ischemic attack (TIA), and cerebral infarction without residual deficits; Z90.10 Acquired absence of unspecified breast and nipple
CPT/HCPCS: 99284; 70450; 72110; 72125